=== PATIENT | female | born 1950 | race Caucasian/White ===

== ENCOUNTER 2020-05-29 11:08 | Inpatient (IN) | payer MEDICARE, OTHER, SELFPAY ==
[2020-05-29] VITALS (38 sets, daily range): BP systolic 127–161; BP diastolic 79–106; PULSE 71–97; RESP 18–37; TEMP 36.8–37.1; O2SAT 89–96; BMI 30.2
--- NOTE | 2020-05-29 11:28 | XR_ITS ---
WS: [id number] Exam: XR chest 1V portable [id number] Date/Time of Exam: 05/29/2020 11:28 AM Reason For Exam: cough Comparison 02/18/2019 There are patchy opacities identified throughout the right lung as well as the mid left lung and left base. Findings suggest pneumonia. Heart size is normal. Large hiatal hernia. No pleural effusions. T he lungs are fully inflated. Normal mediastinal structures and bony elements. XR/XR chest 1V portable [id number] IMPRESSION: 1. Bilateral pulmonary infiltrates consistent with pneumonia. 2. Large hiatal hernia.
--- NOTE | 2020-05-29 11:29 | W.ED.COVID ---
HPI - COVID General: Chief Complaint: COVID symptoms Stated Complaint: COVID SYMPTOMS Time Seen by Provider: 05/29/20 11:21 Source: patient Mode of arrival: ambulatory Limitations: no limitations Triage information: Has fever, cough or shortness of breath. Exposure to COVID + person last 14 days History of Present Illness: HPI Narrative: Shanna is a 69-year-old female who states she has been having shortness of breath along with increased wheezing over last 2 days. Patient diagnosed with Covid 1 week ago. She denies any fevers. She states she has been having some increased shortness of breath. Patient's pulse ox here is 92% on room air. She does not appear to be any distress at this time. She denies any chest pain. COVID 19 common symptoms: positive non-productive cough and dyspnea; negative fever(s), chills, body aches, headache(s), throat pain, nausea, vomiting or diarrhea COVID 19 other sytmptoms: negative chest pain COVID Results: No Data to Display Review of Systems Const: Denies: fever(s), chills, body aches or change in appetite Eyes: Denies: blurry vision or eye discomfort ENMT: Denies: throat pain or dental pain Card: Denies: chest pain Resp: Reports: dyspnea and non-productive cough GI: Denies: abdominal pain, nausea, vomiting or diarrhea : Denies: dysuria Musc: Denies: neck pain or back pain Skin/Breast: Denies: rash Neuro: Denies: headache(s) Psych: Denies: depression Miguel/Lymph: Denies: easy bruising All/Imm: Denies: urticaria Physical Exam Const: COMMON NORMALS: no acute distress, patient oriented x3 and healthy appearing HENMT: COMMON NORMALS: normocephalic and atraumatic HEAD & SCALP: normocephalic and atraumatic Eye: COMMON NORMALS: Equal, round and reactive pupils present and EOMs intact bilaterally PUPIL: Yes Equal, round and reactive pupils present Neck/C-Spine: COMMON NORMALS: full ROM and supple Chest: COMMONS NORMALS: normal inspection of the chest and normal palpation of entire chest wall Resp: COMMON NORMALS: normal respiratory effort, No retractions and No use of accessory muscles AUSCULTATION: rales and wheezes Cardio: COMMON NORMALS: regular rate, regular rhythm and No murmurs present (Cardio) RATE: regular rate RHYTHM: regular rhythm GI: COMMON NORMALS: Normal to inspection, nondistended, normoactive bowel sounds present, Soft to palpation, non-tender and no masses PALPATION: Yes Soft to palpation Extremity: COMMON NORMALS: normal to inspection and full ROM Neuro: COMMON NORMALS: patient oriented x3, moves all extremities and no focal motor deficits Psych: COMMON NORMALS: mental status grossly normal, Normal thought process present and cooperative THOUGHT PROCESS: Normal thought process present Skin: COMMON NORMALS: no rashes or lesions noted and no wounds GENERAL SKIN EXAM: no rashes or lesions noted Course Vital Signs: Vital signs: Vital Signs Temperature 98.5 F 05/29/20 11:21 Pulse Rate 85 05/29/20 11:21 Respiratory Rate 32 H 05/29/20 11:21 Blood Pressure 156/92 05/29/20 11:21 Pulse Oximetry 93 05/29/20 11:21 MDM - COVID MDM Narrative Medical decision making narrative: Patient presents here with shortness of breath he does have Covid. Patient's x-ray shows bilateral infiltrates consistent with a Covid pneumonia. Patient given a breathing treatment and Decadron here. I spoke to Dr. Farrukh gupta and will admit to the viral ICU at this time. Patient has been stable while in the ER. Lab Data Result diagrams: 05/29/20 12:35 05/29/20 13:16 Labs: Lab Results 05/29/20 05/29/20 05/29/20 Range/Units 11:44 12:35 12:35 WBC Cancelled Corrected WBC Cancelled RBC Cancelled Hgb Cancelled Hct Cancelled MCV Cancelled MCH Cancelled MCHC Cancelled RDW Cancelled Plt Count Cancelled MPV Cancelled Gran % Cancelled Neut % (Auto) Cancelled Lymph % (Auto) Cancelled Tama % (Auto) Cancelled Eos % (Auto) Cancelled Baso % (Auto) Cancelled Neut # (Auto) Cancelled Lymph # (Auto) Cancelled Tama # (Auto) Cancelled Eos # (Auto) Cancelled Baso # (Auto) Cancelled Absolute Gran (auto) Cancelled Nucleated RBC % (auto) Cancelled Nucleated RBCs # Cancelled Fibrinogen (174-498) mg/dL Specimen Type Sample Site ABG pH (7.35-7.45) ABG pCO2 (35-45) mmHg ABG pO2 (80.0-100.0) mmHg ABG HCO3 (22-26) mmol/L ABG Base Excess (-2.0-2.0) mmol/L Saurabh Test Hematocrit (37-47) % O2 Delivery Device Doctor Of Nurse Anesthesia Practice ID Sodium Cancelled Potassium Cancelled Chloride Cancelled Carbon Dioxide Cancelled Anion Gap Cancelled BUN Cancelled Creatinine Cancelled GFR Calculation Cancelled Glucose Cancelled Calculated Osmolality Cancelled Lactic Acid Cancelled Calcium Cancelled Total Bilirubin Cancelled AST Cancelled ALT Cancelled Alkaline Phosphatase Cancelled C-Reactive Protein Cancelled Total Protein Cancelled Albumin Cancelled Globulin Cancelled 05/29/20 05/29/20 05/29/20 Range/Units 12:35 12:52 13:16 WBC 7.3 Corrected WBC RBC 4.33 Hgb 12.5 Hct 39.5 MCV 91.2 MCH 28.9 MCHC 31.6 RDW 14.4 Plt Count 304 MPV 10.7 H Gran % Neut % (Auto) 66.5 Lymph % (Auto) 22.6 Tama % (Auto) 8.3 Eos % (Auto) 2.1 Baso % (Auto) 0.1 Neut # (Auto) 4.86 Lymph # (Auto) 1.7 Tama # (Auto) 0.6 Eos # (Auto) 0.2 Baso # (Auto) 0.0 Absolute Gran (auto) Nucleated RBC % (auto) 0 Nucleated RBCs # 0.0 Fibrinogen 512 H (174-498) mg/dL Specimen Type Arterial Sample Site Brachial, right ABG pH 7.47 H (7.35-7.45) ABG pCO2 33.4 L (35-45) mmHg ABG pO2 59.8 L (80.0-100.0) mmHg ABG HCO3 24.4 (22-26) mmol/L ABG Base Excess 1.1 (-2.0-2.0) mmol/L Saurabh Test N/a Hematocrit 36.5 L (37-47) % O2 Delivery Device Room air Doctor Of Nurse Anesthesia Practice ID Gd Sodium Potassium Chloride Carbon Dioxide Anion Gap BUN Creatinine GFR Calculation Glucose Calculated Osmolality Lactic Acid Calcium Total Bilirubin AST ALT Alkaline Phosphatase C-Reactive Protein Total Protein Albumin Globulin 05/29/20 Range/Units 13:16 WBC Corrected WBC RBC Hgb Hct MCV MCH MCHC RDW Plt Count MPV Gran % Neut % (Auto) Lymph % (Auto) Tama % (Auto) Eos % (Auto) Baso % (Auto) Neut # (Auto) Lymph # (Auto) Tama # (Auto) Eos # (Auto) Baso # (Auto) Absolute Gran (auto) Nucleated RBC % (auto) Nucleated RBCs # Fibrinogen (174-498) mg/dL Specimen Type Sample Site ABG pH (7.35-7.45) ABG pCO2 (35-45) mmHg ABG pO2 (80.0-100.0) mmHg ABG HCO3 (22-26) mmol/L ABG Base Excess (-2.0-2.0) mmol/L Saurabh Test Hematocrit (37-47) % O2 Delivery Device Doctor Of Nurse Anesthesia Practice ID Sodium 141 Potassium 3.9 Chloride 105 Carbon Dioxide 27 Anion Gap 12.9 BUN 16 Creatinine 0.7 GFR Calculation 82.7 L Glucose 95 Calculated Osmolality 293 Lactic Acid Calcium 9.1 Total Bilirubin 0.3 AST 25 ALT 14 Alkaline Phosphatase 75 C-Reactive Protein 93.9 H Total Protein 7.3 Albumin 3.6 Globulin 3.7 COVID Results: No Data to Display Imaging Data CXR: Attestation: I personally reviewed and interpreted this imaging study as follows: Radiologist's impression: [address] [address] XRay Report Signed Patient: Shanna Chinchilla Unit #: [id number] : 1950 Age/Sex: 69 / F ADM Date: 05/29/20 Loc: ER Room/Bed: Attending Dr: Ordering Provider/Ordering MD: Edvin Hendrickson MD Date of Service: 05/29/20 Procedure(s): XR chest 1V portable [id number] Accession Number(s): [id number] Report Number: [id number] WS: [id number] Exam: XR chest 1V portable [id number] Date/Time of Exam: 05/29/2020 11:28 AM Reason For Exam: cough Comparison 02/18/2019 There are patchy opacities identified throughout the right lung as well as the mid left lung and left base. Findings suggest pneumonia. Heart size is normal. Large hiatal hernia. No pleural effusions. The lungs are fully inflated. Normal mediastinal structures and bony elements. XR/XR chest 1V portable [id number] IMPRESSION: 1. Bilateral pulmonary infiltrates consistent with pneumonia. 2. Large hiatal hernia. Discharge Plan Discharge Patient Disposition: Admitted As Inpatient Clinical Impression: Pneumonia due to 2019-nCoV Condition: Stable Coding Level of Care Code ED Public Information Specialist for Joelle Fwd Exam Comprehensive
[2020-05-29] MEDS: sodium chloride 0.9% 1,000 ML 999 ML IV (12:17)
[2020-05-29] MEDS: dexamethasone 4 mg/mL INJ 10 MG IVP (12:18)
[2020-05-29 12:43] LABS: Basophils % 0.1 %; Eosinophils # 0.2 10^3/uL (0.0-0.8); Eosinophils % 2.1 %; Hematocrit 39.5 % (37.0-47.0); Hemoglobin 12.5 g/dL (11.5-15.3); Lymphocytes # 1.7 10^3/uL (0.8-4.8); Lymphocytes % 22.6 %; Mean Corpuscular HGB Conc 31.6 g/dL (30.0-36.0); Mean Corpuscular Hemoglobin 28.9 pg (28.0-34.0); Mean Corpuscular Volume 91.2 fL (81-99); Mean Platelet Volume 10.7 fL (7.4-10.4); Monocytes # 0.6 10^3/uL (0.2-0.9); Monocytes % 8.3 %; Neutrophils # 4.86 10^3/uL (1.8-7.7); Neutrophils % 66.5 %; Nucleated Red Blood Cells % 0 %; Platelet Count 304 10^3/cmm (130-400); Red Blood Count 4.33 10^6/uL (4.1-5.3); Red Cell Distribution Width 14.4 % (12.1-15.1); White Blood Count 7.3 10^3/uL (4.0-10.0)
[2020-05-29 13:07] LABS: ABG PCO2 33.4 mmHg (35-45); ABG PH Result 7.47 (7.35-7.45); Arterial Blood Gas Hematocrit 36.5 % (37-47); Base Excess ABG 1.1 mmol/L (-2.0-2.0); Blood Gas Operator Identificat GD; Blood Gas Sample Site Brachial, right; Blood Gas Sample Type Arterial; HCO3 ABG 24.4 mmol/L (22-26); Oxygen Device ROOM AIR; PO2 ABG 59.8 mmHg (80.0-100.0)
[2020-05-29 13:53] LABS: Alanine Aminotransferase 14 U/L (0-33); Albumin Level 3.6 g/dL (3.5-5.2); Alkaline Phosphatase 75 IU/L (35-105); Anion Gap 12.9 (5-19); Aspartate Amino Transferase 25 U/L (0-32); Blood Urea Nitrogen 16 mg/dL (8-23); Calcium 9.1 mg/dL (8.5-10.5); Carbon Dioxide 27 mmol/L (22-29); Chloride 105 mmol/L (98-107); Globulin 3.7 g/dL (1.3-4.6); Glomerular Filtration Rate 82.7 mL/min (90-130); Glucose 95 mg/dL (65-115); Osmolality Calculated 293 mOsm/kg (285-295); Potassium 3.9 mmol/L (3.5-5.1); Sodium 141 mmol/L (136-145); Total Bilirubin 0.3 mg/dL (0.15-1.2); Total Protein 7.3 g/dL (6.6-8.7)
[2020-05-29 14:06] LABS: C Reactive Protein 93.9 mg/L (0.0-4.9)
[2020-05-29 14:14] LABS: Fibrinogen 512 mg/dL (174-498)
[2020-05-29 15:42] LABS: Lactic Sepsis W/Reflex 1.2 mmol/L (0.5-2.2)
--- NOTE | 2020-05-29 16:41 | PC.NURSE ---
Jayesh Ferguson, someone known to the patient, requested the patient's keys so she can take belongings to the patient's . This is okay with the Patient. [employer] were given to Diya form the ER to give to jayesh
--- NOTE | 2020-05-29 16:45 | PC.NURSE ---
patient arrived on unit from ER
--- NOTE | 2020-05-29 17:31 | PM.HP ---
Providers/Chief Complaint Admitting Physician: Adriana Grover MD Primary Care Provider: Dr. Fitzpatrick Chief Complaint: COVID SYMPTOMS History of Present Illness Shanna Chinchilla is a 69 year old female with PMHx noted below, presents to the ER following on phone call from the health department stating that her COVID-19 results are positive. Patient was tested at PCP office on 05/19 with results available today. She states that she was likely exposed at her workplace, she works as a cook at a local high school. While waiting for her results she had progressive shortness of breath, dry cough, malaise, myalgia, decreased appetite, loss of sense of smell, diminished sense of taste, some post-tussive vomiting and multiple episodes of loose stool. She is typically quite active, productive and is not oxygen dependent at baseline. Her at home has had similar symptoms and actually accompanied her to the ER today. She is subjectively short of breath to do maintain her saturation in the low 90s on room air. Her work-up so far indicates a normal CBC, normal chemistry, elevated fibrinogen, elevated CRP, hypoxia on ABG with PO2 of 59.8. Chest x-ray is consistent with bilateral pneumonia likely secondary to COVID-19 infection. She has received a dose of dexamethasone, 1 L normal saline and inhaler treatment. She is encountered on her arrival to the viral ICU and remains on room air. She is somewhat ill-appearing on my assessment. Will need further inflammatory markers checked but for now we will continue supportive care including continued IV steroids. Would hold off on remdesivir at this time as she is maintaining her oxygenation and her labs available, is likely mild to moderate in terms of severity. Review of Systems Const: Reports: change in appetite (decreased appetite) and fatigue; Denies: fever(s) or chills Eyes: Denies: change in vision ENMT: Reports: dry mouth Card: Denies: chest pain, swelling of feet/ankles or lightheadedness Resp: Reports: productive cough (green sputum); Denies: dyspnea GI: Denies: abdominal pain, nausea, vomiting, hematemesis or hematochezia : Reports: urinary frequency; Denies: difficulty voiding or dysuria Musc: Denies: back pain Skin/Breast: Denies: rash Neuro: Reports: weakness in extremities; Denies: numbness in extremities Psych: Denies: anxiety Medications/Allergies Home Medications Medication Instructions Recorded Confirmed Last Taken Type acetaminophen [Tylenol Extra 500 - 1,000 mg PO PRN 05/29/20 05/29/20 Unknown History Strength] amlodipine 5 mg PO DAILY 05/29/20 05/29/20 05/29/20 History famotidine 20 mg PO BEDTIME 05/29/20 05/29/20 Unknown History multivit with min-folic acid 400 mcg PO DAILY 05/29/20 05/29/20 Unknown History [Adult Multivitamin Gummies] naproxen sodium [Aleve] 440 mg PO PRN 05/29/20 05/29/20 Unknown History omeprazole 40 mg PO DAILY 05/29/20 05/29/20 05/29/20 History sertraline 50 mg PO BEDTIME 05/29/20 05/29/20 Unknown History sumatriptan succinate 50 mg PO PRN 05/29/20 05/29/20 Unknown History tramadol 25 - 50 mg PO Q4H PRN 05/29/20 05/29/20 Unknown History Allergies Allergy/AdvReac Type Severity Reaction Status Date / Time acetaminophen [From Percocet] Allergy Unknown Verified 05/29/20 14:10 codeine Allergy Unknown Verified 05/29/20 14:10 oxycodone Allergy Unknown Verified 05/29/20 14:10 topiramate [From Topamax] Allergy Unknown Verified 05/29/20 14:10 PFSH Acute PFSH: Medical History Cervical cancer GERD (gastroesophageal reflux disease) HTN (hypertension) Migraine headache Osteoarthritis Surgical History History of hysterectomy for cancer History of knee replacement -bilateral S/P cholecystectomy Family History Grandmother Cancer -breast cancer Social History (Updated 05/29/20 @ 17:41 by Adriana Grover MD) Smoking and tobacco status: never smoked Alcohol intake: never Substance/Drug Use: never Household members: spouse Marital status: Current occupational status: employed Current occupation: cook at [employer] Vitals/I&O/Wt Last Vital Signs Temp 98.5 F 05/29/20 15:23 Pulse 82 05/29/20 16:46 Resp 20 H 05/29/20 16:46 BP 140/91 05/29/20 16:46 Pulse Ox 91 05/29/20 16:46 05/29/20 05/29/20 05/29/20 06:59 14:59 22:59 Intake Total 1000 / 1000 Balance 1000 / 1000 Weight last 48 hrs Weight 72.575 kg Physical Exam Const: COMMON NORMALS: no acute distress, patient oriented x3 and alert GENERAL APPEARANCE: cooperative and comfortable ORIENTATION/CONSCIOUSNESS: Yes awake HENMT: COMMON NORMALS: normocephalic, atraumatic, hearing grossly normal bilaterally and moist oral mucous membranes HEAD & SCALP: normocephalic and atraumatic Eye: COMMON NORMALS: Equal, round and reactive pupils present, EOMs intact bilaterally and conjunctivae normal CONJUNCTIVA: Yes conjunctivae normal PUPIL: Yes Equal, round and reactive pupils present Neck/C-Spine: COMMON NORMALS: full ROM GENERAL: Yes normal visual inspection and Yes trachea midline Resp: COMMON NORMALS: normal respiratory effort, No retractions and No use of accessory muscles EFFORT & INSPECTION: Yes able to speak in complete sentences, Yes symmetric chest movement, Yes tachypneic and Yes Actively coughing dry OTHER: -diminished breath sounds bilaterally, upper airway breath sounds -on RA Cardio: COMMON NORMALS: regular rate, regular rhythm, S1 normal heart sound present, S2 normal heart sound present and No murmurs present (Cardio) RATE: regular rate RHYTHM: regular rhythm HEART SOUNDS: S1 normal heart sound present and S2 normal heart sound present GI: COMMON NORMALS: Normal to inspection, nondistended, normoactive bowel sounds present, Soft to palpation and non-tender PALPATION: Yes Soft to palpation Extremity: COMMON NORMALS: normal to inspection, full ROM and no clubbing, cyanosis or edema; negative for no pedal edema Neuro: COMMON NORMALS: patient oriented x3, moves all extremities, no focal motor deficits, no sensory deficits noted and gait normal Psych: COMMON NORMALS: mental status grossly normal, Normal thought process present, cooperative, normal affect and speech normal SPEECH: Yes normal speech THOUGHT PROCESS: Normal thought process present Skin: COMMON NORMALS: no rashes or lesions noted, no jaundice, no petechiae and no mottling GENERAL SKIN EXAM: no rashes or lesions noted Data : 05/29/20 12:35 05/29/20 13:16 A&P Assessment and plan (1) Pneumonia due to 2019-nCoV: -initially tested for COVID-19 on 05/19; results available today; workplace exposure -not oxygen dependent at baseline; currently saturating in the low 90s on RA -received one dose of dexamethasone; continue IV steroids -will hold off on remdesevir unless respiratory status decompensates or increase in disease severity; ABG with noted hypoxia -telemetry monitoring -monitor vital signs -monitor respiratory status -supplemental oxygen as needed; supportive care including zinc, vitamin C, breathing treatments as needed, antitussives, incentive spirometry, pulmonary toilet -order influenza screen, bacterial antigens, Legionella, blood and sputum cx -trend inflammatory markers -noted evidence of bilateral pneumonia on CXR -add empiric antibiotic coverage as unable to exclude bacterial superinfection Status: Acute (2) HTN (hypertension): -monitor vital signs -resume antihypertensives Status: Chronic Qualifiers: Hypertension type: essential hypertension Qualified Code(s): I10 - Essential (primary) hypertension (3) GERD (gastroesophageal reflux disease): -resume pepcid -large hiatal hernia noted on CXR Status: Chronic Qualifiers: Esophagitis presence: esophagitis presence not specified Qualified Code(s): K21.9 - Gastro-esophageal reflux disease without esophagitis Additional A&P Information -hx of OA; pain control as needed -viral diarrhea; likely secondary to COVID-19 infection; gentle IVF hydration given limited oral intake -low salt diet as tolerated -GI ppx with famotidine -DVT ppx with Lovenox; will check D-dimer to determine if need for escalation as well as if clinical decompensation -Dispo: home -Code status: FULL code -admit to [facility] Medical Necessity Statement*: Shanna Chinchilla's hospital stay will require greater than 2 midnights for management of COVID-19 pneumonia requiring close monitoring of respiratory status due to concern for further deterioration. Time Spent in Patient Care: Greater than 35 minutes (>than 50% of time spent in counselling and/or direct pt care on unit). Coding Level of Care Code Acute Uniform Attendant for Chg Fwd Diagnoses Pneumonia due to 2019-nCoV U07.1; J12.89 HTN (hypertension) I10 Hypertension type: essential hypertension GERD (gastroesophageal reflux disease) K21.9 Esophagitis presence: esophagitis presence not specified
--- NOTE | 2020-05-29 18:16 | PC.NURSE ---
Patients purse given to Michelle from the ER to be given the patient's .
[2020-05-29] MEDS: famotidine 20 mg Tablet PO (18:37)
[2020-05-29] MEDS: sodium chloride 0.9% 1,000 ML 75 ML IV (18:37)
[2020-05-29] MEDS: enoxaparin 40 mg/0.4 mL Syringe SUBCUT (18:37)
[2020-05-29 19:11] LABS: Influenza A by IFA Negative (Negative)
[2020-05-29 19:12] LABS: Influenza B by IFA Negative (Negative)
[2020-05-29] MEDS: sertraline 50 mg Tablet PO (21:25)
[2020-05-30] VITALS (39 sets, daily range): BP systolic 128–169; BP diastolic 74–112; PULSE 62–100; RESP 15–30; TEMP 36.4–37.2; O2SAT 88–99
--- NOTE | 2020-05-30 03:50 | PC.NURSE ---
pts bed is unable to have weights taken on.
[2020-05-30] MEDS: sodium chloride 0.9% 1,000 ML 75 ML IV (04:47)
[2020-05-30] MEDS: benzonatate 100 mg Capsule PO (04:48)
[2020-05-30 05:44] LABS: Basophils % 0.1 %; Hematocrit 40.9 % (37.0-47.0); Hemoglobin 12.5 g/dL (11.5-15.3); Lymphocytes # 1.8 10^3/uL (0.8-4.8); Lymphocytes % 25.8 %; Mean Corpuscular HGB Conc 30.6 g/dL (30.0-36.0); Mean Corpuscular Hemoglobin 28.5 pg (28.0-34.0); Mean Corpuscular Volume 93.2 fL (81-99); Mean Platelet Volume 12.1 fL (7.4-10.4); Monocytes # 0.2 10^3/uL (0.2-0.9); Monocytes % 3.2 %; Neutrophils # 5.01 10^3/uL (1.8-7.7); Neutrophils % 70.3 %; Nucleated Red Blood Cells % 0 %; Platelet Count 249 10^3/cmm (130-400); Red Blood Count 4.39 10^6/uL (4.1-5.3); Red Cell Distribution Width 14.4 % (12.1-15.1); White Blood Count 7.1 10^3/uL (4.0-10.0)
[2020-05-30 06:05] LABS: Alanine Aminotransferase 14 U/L (0-33); Albumin Level 3.6 g/dL (3.5-5.2); Alkaline Phosphatase 72 IU/L (35-105); Anion Gap 17.5 (5-19); Aspartate Amino Transferase 22 U/L (0-32); Blood Urea Nitrogen 14 mg/dL (8-23); C Reactive Protein 65.7 mg/L (0.0-4.9); Calcium 8.5 mg/dL (8.5-10.5); Carbon Dioxide 21 mmol/L (22-29); Chloride 105 mmol/L (98-107); Creatine Phosphokinase 42 U/L (26-192); Globulin 3.6 g/dL (1.3-4.6); Glomerular Filtration Rate 98.8 mL/min (90-130); Glucose 151 mg/dL (65-115); Osmolality Calculated 293 mOsm/kg (285-295); Potassium 3.5 mmol/L (3.5-5.1); Sodium 140 mmol/L (136-145); Total Bilirubin 0.2 mg/dL (0.15-1.2); Total Protein 7.2 g/dL (6.6-8.7)
[2020-05-30 06:29] LABS: NT Pro B Type Natriuretic Pept 859 pg/mL (0-125); Procalcitonin 0.08 ng/mL (0-0.5)
[2020-05-30 06:41] LABS: Ferritin 214 ng/mL (15-150); Lactate Dehydrogenase 283 U/L (135-214)
[2020-05-30 06:47] LABS: Fibrinogen 494 mg/dL (174-498)
[2020-05-30 07:07] LABS: D Dimer >= 20.00 ug/mIFEU (0-0.59)
[2020-05-30] MEDS: zinc gluconate 50 mg Tablet PO (09:46)
[2020-05-30] MEDS: azithromycin 250 mg Tablet 500 MG PO (09:47)
[2020-05-30] MEDS: famotidine 20 mg Tablet PO ×2 (09:47→17:43)
[2020-05-30] MEDS: amlodipine 5 mg Tablet PO (09:47)
[2020-05-30] MEDS: ascorbic acid 500 mg Tablet PO (09:47)
[2020-05-30] MEDS: dexamethasone 4 mg/mL INJ 6 MG IVP (11:41)
--- NOTE | 2020-05-30 14:00 | PC.NURSE ---
Ambulated Patient in [place]. Approximately 300 feet on room air. Patient had an increased work of breathing, but was not in any distress, was able to hold a conversation, and maintained O2 saturation of 90%.
--- NOTE | 2020-05-30 14:33 | PC.NURSE ---
weighed patient at standing scale while ambulating
--- NOTE | 2020-05-30 14:39 | USCV_ITS ---
Amor Shanna Age: 69 Gender: F : 1950 Exam Date: 05/30/2020 17:01 Ordering Phys: Adriana Grover MD Technologist: Betsy Saeed [place] [facility] [place]: significantly elevated d dimer PROCEDURES: Venous duplex imaging was performed in bilateral lower extremities. The following venous structures were evaluated: common femoral vein, profunda vein, proximal portion of the greater saphenous vein, superficial femoral vein, and the popliteal vein. In addition, the posterior tibial and peroneal trunk were evaluated. Serial compression, augmentation maneuvers, and spectral Doppler flow evaluation were performed. FINDINGS: There is a partial thrombus noted in the peroneal vein located in the right lower extremity. All other vessels examined appear free of thrombus at this time. No left DVT. CONCLUSIONS There is evidence of acute right lower extremity deep venous thrombosis , thrombus in the right peroneal vein. Dr. Darleen Gee DO (Electronically Signed) Final Date: 31 May 2020 08:13 S
--- NOTE | 2020-05-30 14:39 | CTR_ITS ---
PROCEDURE INFORMATION: Exam: CT Angiography Chest With Contrast Exam date and time: 05/30/2020 3:48 PM Age: 69 years old Clinical indication: Abnormal findings; Abnormal diagnostic tests; Elevated d-dimer; Additional info: Significant d dimer elevation, covid+ TECHNIQUE: Imaging protocol: Computed tomographic angiography of the chest with intravenous contrast. 3D rendering (Not supervised by radiologist): MIP and/or 3D reconstructed images were created by the technologist. Radiation optimization: All CT scans at this facility use at least one of these dose optimization techniques: automated exposure control; mA and/or kV adjustment per patient size (includes targeted exams where dose is matched to clinical indication); or iterative reconstruction. Contrast material: OMNI 350; Contrast volume: 75 ml; Contrast route: INTRAVENOUS (IV); COMPARISON: CR XR chest 1V portable [id number] 05/29/2020 11:48 AM RADIATION DOSE METRICS: Total DLP (mGy-cm): 578.47 FINDINGS: Pulmonary arteries: No pulmonary embolus or aortic dissection. Aorta: Unremarkable. No aortic aneurysm. No aortic dissection. Lungs: Bilateral geographic ground-glass opacities with crazy paving consistent with moderate to severe bilateral Covid-19 pneumonia versus other viral pneumonia. Pleural space: Unremarkable. No pneumothorax. No pleural effusion. Heart: Mild pericardial fluid and/or thickening. Mediastinal space: Stable large intrathoracic hiatal hernia. Lymph nodes: Calcified right hilar nodes and/or mediastinal nodes and/or lung granulomas consistent with old granulomatous disease. Gallbladder and bile ducts: Surgical clips in the gallbladder fossa consistent with cholecystectomy. Kidneys and ureters: Left renal simple cyst measuring >1.0 cm. Bones/joints: Unremarkable. No acute fracture. Soft tissues: Unremarkable. CT/CT angio chest [facility] [id number] IMPRESSION: 1. Bilateral geographic ground-glass opacities with crazy paving consistent with moderate to severe bilateral Covid-19 pneumonia versus other viral pneumonia. 2. No pulmonary embolus or aortic dissection. Radiation Dose CTDIVOL = (mGy): DLP = 578.47 (mGy-cm)
--- NOTE | 2020-05-30 14:41 | P.PN_ITS ---
Subjective Subjective: Interval history: Remains on RA, noted elevated inflammatory markers particularly D-dimer so need to r/o DVT, PE, will escalate anticoagulation. Has been ambulating in hallway, in good spirits and reports feeling better today. Discussed elevated D-dimer and concer for possible VTE which she states she has had in the past, PE about 3 yrs ago and RLE DVT; treated with course of Eliquis which she tolerated well. Appetite and oral intake have improved. Medications: Reviewed: Yes Medication Review Details: Active Medications Generic Name Dose Route Start Last Admin Trade Name Freq PRN Reason Stop Dose Admin Acetaminophen 650 mg 05/29/20 17:46 Tylenol PO Q6H PRN MILD PAIN OR INCR EASE TEMP Albuterol Sulfate 2 puff 05/29/20 17:41 Ventolin INHALATION Q4H.RESPIRATORY P RN SHORTNESS OF AZUCENA TH Amlodipine Besylat e 5 mg 05/30/20 09:00 05/30/20 09:47 Norvasc PO 5 mg DAILY YUMIKO Administration Ascorbic Acid 500 mg 05/30/20 09:00 05/30/20 09:47 Vitamin C PO 500 mg DAILY YUMIKO Administration Azithromycin 500 mg 05/30/20 09:00 05/30/20 09:47 Zithromax PO 500 mg DAILY YUMIKO Administration Protocol Benzonatate 100 mg 05/29/20 17:53 05/30/20 04:48 Tessalon Pearls PO 100 mg TID PRN Administration COUGH Dexamethasone 6 mg 05/30/20 11:00 05/30/20 11:41 Decadron IVP 6 mg Q24H YUMIKO Administration Enoxaparin Sodium 80 mg 05/30/20 14:45 Lovenox SUBCUT Q12H YUMIKO Famotidine 20 mg 05/29/20 18:00 05/30/20 09:47 Pepcid Tab PO 20 mg BID YUMIKO Administration Ondansetron HCl 4 mg 05/29/20 17:44 Zofran IVP Q6H PRN NAUSEA AND VOMITI NG Sertraline HCl 50 mg 05/29/20 21:00 05/29/20 21:25 Zoloft PO 50 mg BEDTIME YUMIKO Administration Zinc Gluconate 50 mg 05/30/20 09:00 05/30/20 09:46 Zinc Gluconate PO 50 mg DAILY YUMIKO Administration acetaminophen [From Percocet] Allergy (Verified 05/29/20 14:10) Unknown codeine Allergy (Verified 05/29/20 14:10) Unknown oxycodone Allergy (Verified 05/29/20 14:10) Unknown topiramate [From Topamax] Allergy (Verified 05/29/20 14:10) Unknown Vitals/I&O/Wt Last Vital Signs Temp 98.1 F 05/30/20 12:00 Pulse 84 05/30/20 12:55 Resp 18 05/30/20 12:55 BP 169/93 05/30/20 12:00 Pulse Ox 93 05/30/20 12:55 05/29/20 05/30/20 05/30/20 22:59 06:59 14:59 Intake Total 1000 / 1000 962.5 / 1962.5 1142.5 / 1142.5 Output Total 500 / 500 600 / 1100 600 / 600 Balance 500 / 500 362.5 / 862.5 542.5 / 542.5 Weight last 48 hrs Weight 78.471 kg Weight 72.575 kg Physical Exam Const: COMMON NORMALS: no acute distress, patient oriented x3 and alert GENERAL APPEARANCE: cooperative and comfortable ORIENTATION/CONSCIOUSNESS: Yes awake HENMT: COMMON NORMALS: normocephalic, atraumatic, hearing grossly normal bilaterally and moist oral mucous membranes HEAD & SCALP: normocephalic and atraumatic Eye: COMMON NORMALS: Equal, round and reactive pupils present, EOMs intact bilaterally and conjunctivae normal CONJUNCTIVA: Yes conjunctivae normal PUPIL: Yes Equal, round and reactive pupils present Neck/C-Spine: COMMON NORMALS: full ROM GENERAL: Yes normal visual inspection and Yes trachea midline Resp: COMMON NORMALS: normal respiratory effort, No retractions and No use of accessory muscles EFFORT & INSPECTION: Yes able to speak in complete sentences, Yes symmetric chest movement, Yes tachypneic and Yes Actively coughing dry OTHER: -diminished breath sounds bilaterally, upper airway breath sounds -on RA Cardio: COMMON NORMALS: regular rate, regular rhythm, S1 normal heart sound present, S2 normal heart sound present and No murmurs present (Cardio) RATE: regular rate RHYTHM: regular rhythm HEART SOUNDS: S1 normal heart sound present and S2 normal heart sound present GI: COMMON NORMALS: Normal to inspection, nondistended, normoactive bowel sounds present, Soft to palpation and non-tender PALPATION: Yes Soft to palpation Extremity: COMMON NORMALS: normal to inspection, full ROM and no clubbing, cyanosis or edema; negative for no pedal edema Neuro: COMMON NORMALS: patient oriented x3, moves all extremities, no focal motor deficits, no sensory deficits noted and gait normal SENSORIUM/ORIENTATION: Yes alert Psych: COMMON NORMALS: mental status grossly normal, Normal thought process present, cooperative, normal affect and speech normal SPEECH: Yes normal speech THOUGHT PROCESS: Normal thought process present Skin: COMMON NORMALS: no rashes or lesions noted, no jaundice, no petechiae and no mottling GENERAL SKIN EXAM: no rashes or lesions noted Data : 05/30/20 03:23 05/30/20 03:23 Micro: Microbiology 05/29/20 18:23 MRSA Culture - Final Nose 05/29/20 20:40 Legionella Urinary Antigen - Final Urine,Voided Bacterial Antigens - Final 05/29/20 20:20 Blood Culture - Preliminary Blood SPECIMEN COLLECTED 05/29/20 20:34 Blood Culture - Preliminary Blood SPECIMEN COLLECTED A&P Assessment and plan (1) Pneumonia due to 2019-nCoV: -initially tested for COVID-19 on 05/19; results available today; workplace exposure -not oxygen dependent at baseline; currently saturating in the low 90s on RA -continue dexamethasone -ABG with noted hypoxia -telemetry monitoring -continue to monitor vital signs; stable currently -continue to monitor respiratory status -supplemental oxygen as needed; supportive care including zinc, vitamin C, breathing treatments as needed, antitussives, incentive spirometry, pulmonary toilet -negative influenza screen, bacterial antigens, Legionella -f/u blood and sputum cx -continue to trend inflammatory markers -noted evidence of bilateral pneumonia on CXR; noted to have moderate to severe bilateral groundglass opacities so will start on remdesivir -continue empiric antibiotic coverage as unable to exclude bacterial superinfection -due to significant D-dimer elevation (>20), need to r/o DVT, PE; escalate anticoagulation Status: Acute (2) HTN (hypertension): -continue to monitor vital signs -continue antihypertensives Status: Chronic Qualifiers: Hypertension type: essential hypertension Qualified Code(s): I10 - Essential (primary) hypertension (3) GERD (gastroesophageal reflux disease): -continue pepcid -large hiatal hernia noted on CXR Status: Chronic Qualifiers: Esophagitis presence: esophagitis presence not specified Qualified Code(s): K21.9 - Gastro-esophageal reflux disease without esophagitis Additional A&P Information -hx of OA; pain control as needed -viral diarrhea; likely secondary to COVID-19 infection; d/c IVF, encourage oral hydration -prior hx of PE, RLE DVT; treated with course of Eliquis -low salt diet as tolerated -GI ppx with famotidine -DVT ppx with Lovenox -Dispo: home -Code status: FULL code Attestations Medical Necessity Statement*: Patient requires hospitalization for continued management of COVID-19 pneumonia with noted elevated D-dimer and need to evaluate for possible VTE. Time Spent in Patient Care: 16 - 35 minutes (>than 50% of time spent in counselling and/or direct pt care on unit) . Coding Level of Care Code Acute [employer] for [employer] Fwd Exam Comprehensive Diagnoses Pneumonia due to 2019-nCoV U07.1; J12.89 HTN (hypertension) I10 Hypertension type: essential hypertension GERD (gastroesophageal reflux disease) K21.9 Esophagitis presence: esophagitis presence not specified
[2020-05-30] MEDS: enoxaparin 100 mg/mL Syringe 80 MG SUBCUT (15:04)
[2020-05-30] MEDS: iohexol 350 mg/mL 100 mL Btl IV (16:00)
--- NOTE | 2020-05-30 18:33 | PC.NURSE ---
Patient taken to off unit via wheelchair For CT scan. Transport uneventful. Changed patient's linens and gown upon return
--- NOTE | 2020-05-30 18:58 | PC.NURSE ---
Patient has given permission to share information with Claudia (daughter), Lissy ryan, molly mcclellan, Em toth.
[2020-05-30] MEDS: sertraline 50 mg Tablet PO (20:19)
[2020-05-31] VITALS (34 sets, daily range): BP systolic 112–176; BP diastolic 72–97; PULSE 57–92; RESP 18–30; TEMP 36.2–36.8; O2SAT 85–96
[2020-05-31] MEDS: enoxaparin 100 mg/mL Syringe 80 MG SUBCUT (02:40)
[2020-05-31 06:38] LABS: Basophils % 0.1 %; Hematocrit 37.3 % (37.0-47.0); Hemoglobin 11.5 g/dL (11.5-15.3); Lymphocytes # 1.7 10^3/uL (0.8-4.8); Lymphocytes % 18.6 %; Mean Corpuscular HGB Conc 30.8 g/dL (30.0-36.0); Mean Corpuscular Volume 90.8 fL (81-99); Mean Platelet Volume 11.7 fL (7.4-10.4); Monocytes # 0.5 10^3/uL (0.2-0.9); Neutrophils # 7.07 10^3/uL (1.8-7.7); Neutrophils % 75.6 %; Nucleated Red Blood Cells % 0 %; Platelet Count 232 10^3/cmm (130-400); Red Blood Count 4.11 10^6/uL (4.1-5.3); Red Cell Distribution Width 14.4 % (12.1-15.1); White Blood Count 9.4 10^3/uL (4.0-10.0)
[2020-05-31 06:44] LABS: Fibrinogen 429 mg/dL (174-498)
[2020-05-31 06:54] LABS: D Dimer 7.43 ug/mIFEU (0-0.59)
[2020-05-31 07:46] LABS: Alanine Aminotransferase 18 U/L (0-33); Albumin Level 3.3 g/dL (3.5-5.2); Alkaline Phosphatase 63 IU/L (35-105); Anion Gap 12.5 (5-19); Aspartate Amino Transferase 29 U/L (0-32); Blood Urea Nitrogen 14 mg/dL (8-23); C Reactive Protein 27.4 mg/L (0.0-4.9); Calcium 8.6 mg/dL (8.5-10.5); Carbon Dioxide 24 mmol/L (22-29); Chloride 108 mmol/L (98-107); Creatinine Clr Calc Pharmacy 62.0498; Ferritin 178 ng/mL (15-150); Globulin 3.2 g/dL (1.3-4.6); Glucose 102 mg/dL (65-115); Lactate Dehydrogenase 264 U/L (135-214); NT Pro B Type Natriuretic Pept 1107 pg/mL (0-125); Osmolality Calculated 293 mOsm/kg (285-295); Potassium 3.5 mmol/L (3.5-5.1); Sodium 141 mmol/L (136-145); Total Bilirubin 0.2 mg/dL (0.15-1.2); Total Protein 6.5 g/dL (6.6-8.7)
--- NOTE | 2020-05-31 07:56 | PM.PN ---
Subjective Subjective: Interval history: Now requiring supplemental oxygen support, on 2 L NC overnight, improving inflammatory markers, had 1050 mL urine output overnight. On day 2 of remdesevir. Ambulating in the hallway with nursing staff assistance, on room air currently. Reports feeling better today. Noted acute right lower extremity DVT on venous duplex. Medications: Reviewed: Yes Medication Review Details: Active Medications Generic Name Dose Route Start Last Admin Trade Name Freq PRN Reason Stop Dose Admin Acetaminophen 650 mg 05/29/20 17:46 Tylenol PO Q6H PRN MILD PAIN OR INCR EASE TEMP Albuterol Sulfate 2 puff 05/29/20 17:41 Ventolin INHALATION Q4H.RESPIRATORY P RN SHORTNESS OF AZUCENA TH Amlodipine Besylat e 5 mg 05/30/20 09:00 05/30/20 09:47 Norvasc PO 5 mg DAILY YUMIKO Administration Ascorbic Acid 500 mg 05/30/20 09:00 05/30/20 09:47 Vitamin C PO 500 mg DAILY YUMIKO Administration Azithromycin 500 mg 05/30/20 09:00 05/30/20 09:47 Zithromax PO 500 mg DAILY YUMIKO Administration Protocol Benzonatate 100 mg 05/29/20 17:53 05/30/20 04:48 Tessalon Pearls PO 100 mg TID PRN Administration COUGH Dexamethasone 6 mg 05/30/20 11:00 05/30/20 11:41 Decadron IVP 6 mg Q24H YUMIKO Administration Enoxaparin Sodium 80 mg 05/30/20 14:45 05/31/20 02:40 Lovenox SUBCUT 80 mg Q12H YUMIKO Administration Famotidine 20 mg 05/29/20 18:00 05/30/20 17:43 Pepcid Tab PO 20 mg BID YUMIKO Administration remdesivir (EUA) 1 00 mg/ 100 mls @ 100 mls /hr 05/31/20 17:00 Sodium Chloride IV 06/03/20 17:59 Q24H YUMIKO Ondansetron HCl 4 mg 05/29/20 17:44 Zofran IVP Q6H PRN NAUSEA AND VOMITI NG Sertraline HCl 50 mg 05/29/20 21:00 05/30/20 20:19 Zoloft PO 50 mg BEDTIME YUMIKO Administration Zinc Gluconate 50 mg 05/30/20 09:00 05/30/20 09:46 Zinc Gluconate PO 50 mg DAILY YUMIKO Administration acetaminophen [From Percocet] Allergy (Verified 05/29/20 14:10) Unknown codeine Allergy (Verified 05/29/20 14:10) Unknown oxycodone Allergy (Verified 05/29/20 14:10) Unknown topiramate [From Topamax] Allergy (Verified 05/29/20 14:10) Unknown Vitals/I&O/Wt Last Vital Signs Temp 98.2 F 05/31/20 04:00 Pulse 57 L 05/31/20 06:00 Resp 20 H 05/31/20 06:00 BP 162/89 05/31/20 06:00 Pulse Ox 96 05/31/20 06:00 05/30/20 05/31/20 05/31/20 22:59 06:59 14:59 Intake Total 365 / 1507.5 100 / 1607.5 Output Total 250 / 850 900 / 1750 Balance 115 / 657.5 -800 / -142.5 Weight last 48 hrs Weight 78.471 kg Weight 72.575 kg Physical Exam Const: COMMON NORMALS: no acute distress, patient oriented x3 and alert GENERAL APPEARANCE: cooperative and comfortable ORIENTATION/CONSCIOUSNESS: Yes awake OTHER: -Resting comfortably in bed HENMT: COMMON NORMALS: normocephalic, atraumatic, hearing grossly normal bilaterally and moist oral mucous membranes HEAD & SCALP: normocephalic and atraumatic Eye: COMMON NORMALS: Equal, round and reactive pupils present, EOMs intact bilaterally and conjunctivae normal CONJUNCTIVA: Yes conjunctivae normal PUPIL: Yes Equal, round and reactive pupils present Neck/C-Spine: COMMON NORMALS: full ROM GENERAL: Yes normal visual inspection and Yes trachea midline Resp: COMMON NORMALS: normal respiratory effort, No retractions and No use of accessory muscles EFFORT & INSPECTION: Yes able to speak in complete sentences, Yes symmetric chest movement and Yes tachypneic OTHER: -diminished breath sounds bilaterally, air entry improving -on RA Cardio: COMMON NORMALS: regular rate, regular rhythm, S1 normal heart sound present, S2 normal heart sound present and No murmurs present (Cardio) RATE: regular rate RHYTHM: regular rhythm HEART SOUNDS: S1 normal heart sound present and S2 normal heart sound present GI: COMMON NORMALS: Normal to inspection, nondistended, normoactive bowel sounds present, Soft to palpation and non-tender PALPATION: Yes Soft to palpation Extremity: COMMON NORMALS: normal to inspection, full ROM and no clubbing, cyanosis or edema; negative for no pedal edema Neuro: COMMON NORMALS: patient oriented x3, moves all extremities, no focal motor deficits, no sensory deficits noted and gait normal SENSORIUM/ORIENTATION: Yes alert Psych: COMMON NORMALS: mental status grossly normal, Normal thought process present, cooperative, normal affect and speech normal SPEECH: Yes normal speech THOUGHT PROCESS: Normal thought process present Skin: COMMON NORMALS: no rashes or lesions noted, no jaundice, no petechiae and no mottling GENERAL SKIN EXAM: no rashes or lesions noted Data : 05/31/20 03:45 05/31/20 07:05 Micro: Microbiology 05/29/20 20:20 Blood Culture - Preliminary Blood NEGATIVE TO DATE 05/29/20 20:34 Blood Culture - Preliminary Blood Gram positive cocci 05/29/20 18:23 MRSA Culture - Final Nose A&P Assessment and plan (1) Pneumonia due to 2019-nCoV: -initially tested for COVID-19 on 05/19; workplace exposure -not oxygen dependent at baseline; now requiring supplemental oxygen, wean as tolerated -continue dexamethasone -ABG with noted hypoxia -telemetry monitoring -continue to monitor vital signs; stable currently -continue to monitor respiratory status -supplemental oxygen as needed; supportive care including zinc, vitamin C, breathing treatments as needed, antitussives, incentive spirometry, pulmonary toilet -negative influenza screen, bacterial antigens, Legionella -blood cx: 08/07 bottles positive for GPC in clusters, order repeat set -continue to trend inflammatory markers -noted evidence of bilateral pneumonia on CXR; noted to have moderate to severe bilateral groundglass opacities so started on remdesivir (day 2) -continue empiric antibiotic coverage as unable to exclude bacterial superinfection -due to significant D-dimer elevation (>20), need to r/o DVT, PE; escalated anticoagulation. CTA negative for PE; venous duplex with noted acute RLE DVT (peroneal vein); will switch to Eliquis. As this is not her first episode she would likely require lifelong anticoagulation Status: Acute (2) HTN (hypertension): -continue to monitor vital signs -continue antihypertensives Status: Chronic Qualifiers: Hypertension type: essential hypertension Qualified Code(s): I10 - Essential (primary) hypertension (3) GERD (gastroesophageal reflux disease): -continue pepcid -large hiatal hernia noted on CXR Status: Chronic Qualifiers: Esophagitis presence: esophagitis presence not specified Qualified Code(s): K21.9 - Gastro-esophageal reflux disease without esophagitis Additional A&P Information -hx of OA; pain control as needed -viral diarrhea; likely secondary to COVID-19 infection; off IVF, encourage oral hydration -prior hx of PE, RLE DVT; treated with course of Eliquis -low salt diet as tolerated -GI ppx with famotidine -DVT ppx with Lovenox -Dispo: home -Code status: FULL code Attestations Medical Necessity Statement*: Patient requires hospitalization for continued treatment of COVID-19 pneumonia, on antibiotic and antiviral treatment and continued anticoagulation. Time Spent in Patient Care: 16 - 35 minutes (>than 50% of time spent in counselling and/or direct pt care on unit). Coding Level of Care Code Acute [employer] for [facility] Fwd Exam Comprehensive Diagnoses Pneumonia due to 2019-nCoV U07.1; J12.89 HTN (hypertension) I10 Hypertension type: essential hypertension GERD (gastroesophageal reflux disease) K21.9 Esophagitis presence: esophagitis presence not specified
[2020-05-31] MEDS: famotidine 20 mg Tablet PO ×2 (09:56→17:01)
[2020-05-31] MEDS: azithromycin 250 mg Tablet 500 MG PO (09:56)
[2020-05-31] MEDS: zinc gluconate 50 mg Tablet PO (09:56)
[2020-05-31] MEDS: amlodipine 5 mg Tablet PO (09:56)
[2020-05-31] MEDS: ascorbic acid 500 mg Tablet PO (09:56)
[2020-05-31] MEDS: FUROsemide 10 mg/mL SDV 2mL 20 MG IVP (09:57)
[2020-05-31] MEDS: dexamethasone 4 mg/mL INJ 6 MG IVP (10:41)
[2020-05-31] MEDS: apixaban 5 mg Tablet 10 MG PO (14:18)
[2020-05-31] MEDS: sertraline 50 mg Tablet PO (20:25)
[2020-06-01] VITALS (19 sets, daily range): BP systolic 140–177; BP diastolic 69–104; PULSE 51–83; RESP 16–27; TEMP 36.6–36.7; O2SAT 84–96
[2020-06-01] MEDS: apixaban 5 mg Tablet 10 MG PO ×2 (01:40→13:53)
[2020-06-01 05:46] LABS: C Reactive Protein 19.1 mg/L (0.0-4.9)
[2020-06-01 05:58] LABS: Ferritin 196 ng/mL (15-150); NT Pro B Type Natriuretic Pept 619 pg/mL (0-125)
[2020-06-01 06:03] LABS: Lactate Dehydrogenase 319 U/L (135-214)
[2020-06-01 06:47] LABS: D Dimer 5.97 ug/mIFEU (0-0.59)
[2020-06-01] MEDS: amlodipine 5 mg Tablet PO (08:33)
[2020-06-01] MEDS: zinc gluconate 50 mg Tablet PO (08:33)
[2020-06-01] MEDS: azithromycin 250 mg Tablet 500 MG PO (08:33)
[2020-06-01] MEDS: ascorbic acid 500 mg Tablet PO (08:33)
[2020-06-01] MEDS: famotidine 20 mg Tablet PO (08:33)
--- NOTE | 2020-06-01 09:00 | PC.SOCIAL ---
IMM Page 2 of IMM explained to patient by phone. She verbalizes understanding. Initialed, dated, and timed and will be sent to medical records upon d/c.
[2020-06-01] MEDS: dexamethasone 4 mg/mL INJ 6 MG IVP (10:52)
--- NOTE | 2020-06-01 12:15 | PM.DCS ---
Discharge Providers Date of Admission: 05/29/20 14:29 Date of Discharge: June 01, 2020 Attending Provider at Admission: Adriana Grover MD Attending Provider at Discharge: Adriana Grover MD Consults: None Primary Care Provider: Dr. Fitzpatrick Diagnoses at Discharge Discharge Diagnosis (1) Pneumonia due to 2019-nCoV: Status: Acute Permanent problem details: -initially tested for COVID-19 on 05/19; workplace exposure -not oxygen dependent at baseline; now requiring supplemental oxygen, wean as tolerated. Home oxygen evaluation prior to discharge, qualifies for 3 L NC with exertion -continue dexamethasone -ABG with noted hypoxia -telemetry monitoring -continue to monitor vital signs; stable currently -continue to monitor respiratory status -supplemental oxygen as needed; supportive care including zinc, vitamin C, breathing treatments as needed, antitussives, incentive spirometry, pulmonary toilet -negative influenza screen, bacterial antigens, Legionella -blood cx: 08/07 bottles positive for GPC in clusters, repeat set pending -continue to trend inflammatory markers -noted evidence of bilateral pneumonia on CXR; noted to have moderate to severe bilateral groundglass opacities so started on remdesivir (day 3) -continue empiric antibiotic coverage as unable to exclude bacterial superinfection -due to significant D-dimer elevation (>20), need to r/o DVT, PE; escalated anticoagulation. CTA negative for PE; venous duplex with noted acute RLE DVT (peroneal vein); switched to Eliquis. As this is not her first episode she would likely require lifelong anticoagulation (2) HTN (hypertension): Status: Chronic Permanent problem details: -continue to monitor vital signs -continue antihypertensives Qualifiers: Hypertension type: essential hypertension Qualified Code(s): I10 - Essential (primary) hypertension (3) GERD (gastroesophageal reflux disease): Status: Chronic Permanent problem details: -continue pepcid -large hiatal hernia noted on CXR Qualifiers: Esophagitis presence: esophagitis presence not specified Qualified Code(s): K21.9 - Gastro-esophageal reflux disease without esophagitis (4) Right leg DVT: Status: Acute Permanent problem details: -due to significant D-dimer elevation (>20), need to r/o DVT, PE; escalated anticoagulation. CTA negative for PE; venous duplex with noted acute RLE DVT (peroneal vein); switched to Eliquis. As this is not her first episode she would likely require lifelong anticoagulation Qualifiers: Affected thrombotic vein of extremity: peroneal Chronicity: acute Qualified Code(s): I82.451 - Acute embolism and thrombosis of right peroneal vein Other Information Additional DC diagnoses/information: -hx of OA; pain control as needed -viral diarrhea; likely secondary to COVID-19 infection; off IVF, encourage oral hydration -prior hx of PE, RLE DVT; treated with course of Eliquis Reason for Visit Reason for Visit: COVID SYMPTOMS Hospital Course Hospital Course: Patient was admitted to the viral ICU secondary to having been found positive for COVID-19 infection. Due to concern for possible decompensation given degree of dyspnea on presentation she was admitted to the hospital for further care. Inflammatory markers were found to be elevated and there was evidence of pneumonia on her chest x-ray. She was started on remdesivir, IV steroids and empiric antibiotic therapy. Interestingly her D-dimer was quite elevated and as it is unlikely that infection would explain the degree of elevation she was screened for possible PE and DVT, and found to have an acute right lower extremity DVT. She had been covered empirically with therapeutic Lovenox which was then switched to therapeutic Eliquis. 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 She has previously been treated with Eliquis with good response hence the choice of therapy. She has done well particularly over the past 24-36 hours and would like to go home today. She will be discharged with a short course of steroids and antibiotics. While at rest she is able to maintain her saturations in the low 90s while on room air but with exertion does require some supplemental oxygen support. She is not oxygen dependent at baseline so home oxygen evaluation was done prior to discharge and she qualifies for 3 L nasal cannula which has been arranged. She has been cautioned to continue to monitor her symptoms at home as well as her temperature and oxygen levels. She is advised to seek medical attention immediately should she have worsening symptoms, persistently low oxygen levels, fever. She will need to follow-up with her primary care provider and is to recuperate at home until cleared for return to work by her primary care provider. Discharge Summary: -Patient to follow up with primary care provider within 1 week Physical Exam Const: COMMON NORMALS: no acute distress, patient oriented x3 and alert GENERAL APPEARANCE: cooperative and comfortable ORIENTATION/CONSCIOUSNESS: Yes awake OTHER: -Resting comfortably in bed HENMT: COMMON NORMALS: normocephalic, atraumatic, hearing grossly normal bilaterally and moist oral mucous membranes HEAD & SCALP: normocephalic and atraumatic Eye: COMMON NORMALS: Equal, round and reactive pupils present, EOMs intact bilaterally and conjunctivae normal CONJUNCTIVA: Yes conjunctivae normal PUPIL: Yes Equal, round and reactive pupils present Neck/C-Spine: COMMON NORMALS: full ROM GENERAL: Yes normal visual inspection and Yes trachea midline Resp: COMMON NORMALS: normal respiratory effort, No retractions and No use of accessory muscles EFFORT & INSPECTION: Yes able to speak in complete sentences, Yes symmetric chest movement and Yes tachypneic OTHER: -diminished breath sounds bilaterally, air entry improving -on RA Cardio: COMMON NORMALS: regular rate, regular rhythm, S1 normal heart sound present, S2 normal heart sound present and No murmurs present (Cardio) RATE: regular rate RHYTHM: regular rhythm HEART SOUNDS: S1 normal heart sound present and S2 normal heart sound present GI: COMMON NORMALS: Normal to inspection, nondistended, normoactive bowel sounds present, Soft to palpation and non-tender PALPATION: Yes Soft to palpation Extremity: COMMON NORMALS: normal to inspection, full ROM and no clubbing, cyanosis or edema; negative for no pedal edema Neuro: COMMON NORMALS: patient oriented x3, moves all extremities, no focal motor deficits, no sensory deficits noted and gait normal SENSORIUM/ORIENTATION: Yes alert Psych: COMMON NORMALS: mental status grossly normal, Normal thought process present, cooperative, normal affect and speech normal SPEECH: Yes normal speech THOUGHT PROCESS: Normal thought process present Skin: COMMON NORMALS: no rashes or lesions noted, no jaundice, no petechiae and no mottling GENERAL SKIN EXAM: no rashes or lesions noted Discharge Data Data Completed and Pending: Completed Studies During Hospitalization Category Date Time Status CT angio chest PE protcl [id number] Rout ine Cat Scan 05/30/20 14:39 Completed XR chest 1V aziza ble [id number] Stat Exams 05/29/20 11:28 [place] [id number] Routin e Ultrasound 05/30/20 14:39 Completed Pending at discharge Category Date Time Status Blood Culture Sta t Lab 05/29/20 20:20 Results Blood Culture Sta t Lab 05/31/20 12:30 Results Sputum Culture an d Gram Stain Routi ne Lab 05/30/20 08:32 Ordered Labs from last 24 hours 06/01/20 06/01/20 06/01/20 03:50 03:50 03:50 D-Dimer 5.97 H Ferritin 196 H Lactate Dehydrogen ase 319 H C-Reactive Protein 19.1 H NT-Pro-B Natriuret Pep 619 H Vitals: Last Vital Signs Temp 97.9 F 06/01/20 11:18 Pulse 65 06/01/20 08:00 Resp 27 H 06/01/20 08:00 BP 149/98 06/01/20 09:00 Pulse Ox 90 06/01/20 08:00 Discharge Plan Discharge Patient Disposition: Home Condition: Stable Prescriptions: New John DVT-PE Treat 30D Start 5 mg (74 tabs) tablets,dose pack See Rx Instructions .ROUTE .COMPLEX Qty: 74 RF: 0 prednisone 20 mg tablet See Rx Instructions .ROUTE .COMPLEX 5 Days Qty: 10 RF: 0 azithromycin 250 mg Tablet 500 mg PO DAILY 5 Days Qty: 10 RF: 0 Vitamin C 500 mg Tablet 500 mg PO DAILY Qty: 30 RF: 0 Ventolin HFA 90 mcg/actuation Hfa Aerosol Inhaler 2 puff inhalation Q4H.RESPIRATORY PRN (Reason: Shortness Of Breath) Qty: 18 RF: 0 zinc gluconate 50 mg Tablet 50 mg PO DAILY Qty: 30 RF: 0 Continued sumatriptan succinate 50 mg tablet 50 mg PO PRN RF: 0 amlodipine 5 mg tablet 5 mg PO DAILY RF: 0 tramadol 50 mg tablet 25 - 50 mg PO Q4H PRN (Reason: Pain) RF: 0 Tylenol Extra Strength 500 mg Tablet 500 - 1,000 mg PO PRN RF: 0 famotidine 20 mg tablet 20 mg PO BEDTIME RF: 0 Aleve 220 mg Tablet 440 mg PO PRN RF: 0 sertraline 50 mg tablet 50 mg PO BEDTIME RF: 0 Adult Multivitamin Gummies 200 mcg Tablet,Chewable 400 mcg PO DAILY RF: 0 Discontinued omeprazole 40 mg capsule,delayed release(DR/EC) 40 mg PO DAILY RF: 0 Discharge Orders: Discharge Order (Routine); Ordered 06/01/20 Ordered By: Adriana Grover Other Ambulatory Orders: DME: Oxygen (Order) Location: None Selected Ordered By: Adriana Grover Referrals: Ricky Fitzpatrick DO [Physician] - 4-7 days (Post hospital discharge follow up) Discharge Diet: Low Salt Discharge Activity: Increase activity as tolerated and Oxygen as instructed Activity Restrictions/Additional Instructions: -Please continue to monitor your symptoms at home particularly with respect to your oxygen levels, temperature, breathing. Please seek medical attention immediately should you notice persistently low oxygen levels, worsening symptoms, persistent fever -Please continue to maintain proper and frequent hand hygiene, mask wearing and social distancing particularly when out in the community. Would strongly recommend continued self-isolation -Please note that you will now require supplemental oxygen particularly with exertion. Discharge Attestations Time Spent in Discharge Care*: greater than 30 min Specific Discharge Activities: Specific discharge activities: educating patient, educating and/or supporting family/caregiver, discussing with adult protective caseworker/social workers/dc planners, documenting/other paperwork and evaluating patient/reviewing data Status at Discharge: Cognitive status at discharge: cognitively intact, Behavioral status at discharge: cooperative and independent in ADL's, Functional status at discharge: independent ambulation Overall status at discharge: patient is progressing back to baseline Quality Metrics Clinical Quality Measures During this hospital stay, did patient experience: None Coding Level of Care Code Acute Chief Radiation Therapist for g Fwd Diagnoses Pneumonia due to 2019-nCoV U07.1; J12.89 HTN (hypertension) I10 Hypertension type: essential hypertension GERD (gastroesophageal reflux disease) K21.9 Esophagitis presence: esophagitis presence not specified Right leg DVT I82.451 Affected thrombotic vein of extremity: peroneal Chronicity: acute
--- NOTE | 2020-06-01 15:04 | PC.NURSE ---
Patient discharged with all belongings, preferred to use own pharmacy, medications sent there.
--- NOTE | 2020-06-02 14:03 | PC.SOCIAL ---
Called the patient at home [phone]. She state that she has an appointment to see her PCP Dr. Fitzpatrick on 06/05/2020. She is currently on oxygen and is using it at home. She stated that she is doing well. We spoke about signs and symptoms to watch for such as; blue lips or face, fever of- 104 or higher, trouble breathing or catching breath, chest pain lasting longer than 5 minute, confusion or trouble waking up. We also spoke about ways to improve the immune system, these included; eating and drinking well, eating fruits and vegetables, lean meat, low fat dairy products, keeping up with immunizations such as flu/pneumonia/shingles shots, going to all appointments and follow ups, lessening and stress. We also spoke about ways to stop or prevent the spread of the COVID 19. These included; social distancing at all times, washing hands longer than 20 seconds with a good lather, sanitizing surfaces in home and in vehicle, masking up when possible and washing any cloth masks after use and allow them to dry completely before next use, sneezing or coughing into arm, restricting company or going out in public. We spoke a little about the benefits of plasma donation. Patient was mailed information. We went over all her discharge paperwork, she stated that she understood it well, that the nurses went over everything thoroughly.
== END 2020-06-01 14:45 | disposition home or self-care (01) | DRG 177 ==
LOC: ER 14:30 → ICU 14:56
PROVIDERS: Emergency Medicine; Admitting Provider Family Medicine; Visit Provider Family Medicine
DX: U07.1 COVID-19 (principal); J12.89 Other viral pneumonia; A08.39 Other viral enteritis; I82.451 Acute embolism and thrombosis of right peroneal vein; R09.02 Hypoxemia; Z85.41 Personal history of malignant neoplasm of cervix uteri; Z96.653 Presence of artificial knee joint, bilateral; I10 Essential (primary) hypertension; K21.9 Gastro-esophageal reflux disease without esophagitis; K44.9 Diaphragmatic hernia without obstruction or gangrene; M19.90 Unspecified osteoarthritis, unspecified site
CPT/HCPCS: 12345; 36415; 36600; 71045; 71275; 80053; 82550; 82728; 82803; 83605; 83615; 83880; 84145; 85025; 85378; 85384; 86140; 86403; 87040; 87070; 87205; 87449; 87641; 87804; 93970; 94760; 96372; 96375; 99283; J1100; J1650; J1940; J7030; Q0144; Q9967

== ENCOUNTER 2020-07-25 12:41 | Outpatient (CLI) | payer MEDICARE, SELFPAY ==
--- NOTE | 2020-07-25 12:57 | MM_ITS ---
WS: [id number] BILATERAL SCREENING DIGITAL MAMMOGRAM WITH CAD HISTORY: SCREEN COMPARISON: 11/16/2018 and 08/01/2017 Bilateral CC and MLO views submitted. Computer aided detection analyzed. Breast composition: The breasts are heterogeneously dense, which may obscure small masses. No suspici ous masses, microcalcifications or architectural distortion. Benign calcification 9:00 RIGHT breast. MM/[place] [id number] IMPRESSION: BI-RADS: 2-Benign FOLLOW UP: 1 Year Follow-up
== END 2020-07-25 12:42 | disposition home or self-care (01) ==
LOC: RADSHAW 12:47
PROVIDERS: PCP Internal Medicine; Visit Provider Nurse Practitioner Family
DX: Z12.31 Encounter for screening mammogram for malignant neoplasm of breast (principal)
CPT/HCPCS: 77067

== ENCOUNTER 2021-04-12 14:27 | Outpatient (CLI) | payer MEDICARE, SELFPAY ==
--- NOTE | 2021-04-12 14:32 | XR_ITS ---
WS: [id number] DEXA (DUAL ENERGY X-RAY ABSORPTIOMETRY) Bone mineral density was performed using a [employer] machine. HISTORY: POSTMENOPAUSAL COMPARISON: 12/16/2013 Lumbar spine BMD (L1-L4): 1.297 g/cm2 T score: 1.0 Z score: 2.0 Total hip BMD: Left: 0.945 g/cm2. T score: -0.5 Z score: 0.6 Right: 0.925 g/cm2. T score: -0.7 Z score: 0.5 10 year probability of a major osteoporotic fracture is 9%. Compared to the prior study from 12/16/2013. Lumbar spine bone mineral density has decreased by 4.4%. Bilateral hips bone mineral density has not changed. XR/XR DEXA axial skeleton* [id number] IMPRESSION: NORMAL BONE MINERAL DENSITY based upon the WHO classification for females. Sign ificant decrease in bone mineral density in the lumbar spine since the prior ex am.
== END 2021-04-12 14:28 | disposition home or self-care (01) ==
PROVIDERS: PCP Internal Medicine; Visit Provider Nurse Practitioner Family
DX: Z78.0 Asymptomatic menopausal state (principal)
CPT/HCPCS: 77080

== ENCOUNTER 2021-09-25 14:33 | Outpatient (CLI) | payer MEDICARE, SELFPAY ==
--- NOTE | 2021-09-25 14:42 | MM_ITS ---
WS: [id number] BILATERAL DIGITAL SCREENING MAMMOGRAPHY WITH CAD CLINICAL INFORMATION: SCREENING HISTORY: Screening mammogram. No current complaints. COMPARISON: July 25, 2020 TECHNIQUE: Bilateral CC and MLO views. FINDINGS: The breasts are composed of heterogeneous fibroglandular density tissue, which can limit the detectio n of small underlying mass lesions. A few incidental punctate and lucent centered calcifications. No suspicious mass, asymmetry, calcifications, or architectural distortion. No evidence of malignancy. MM/[place] [id number] IMPRESSION: BI-RADS: 2-Benign FOLLOW UP: 1 Year Follow-up Recommend return to annual screening mammography.
== END 2021-09-25 14:34 | disposition home or self-care (01) ==
PROVIDERS: PCP Internal Medicine; Visit Provider Internal Medicine
DX: Z12.31 Encounter for screening mammogram for malignant neoplasm of breast (principal)
CPT/HCPCS: 77067

== ENCOUNTER 2021-11-19 14:19 | Emergency (ER) | payer MEDICARE, SELFPAY ==
[2021-11-19] VITALS (14 sets, daily range): BP systolic 139–182; BP diastolic 70–103; PULSE 80–110; RESP 14–18; TEMP 36.7–37.6; O2SAT 92–97; BMI 34.0
--- NOTE | 2021-11-19 15:21 | ED_ITS ---
HPI - Recheck/Abnormal Lab/Rx General: Chief Complaint: Recheck/Abnormal Lab/Rx Stated Complaint: sent to ER per Dr. Fitzpatrick Time Seen by Provider: 11/19/21 14:45 PFSH ED PFSH: Medical History Cervical cancer GERD (gastroesophageal reflux disease) -continue pepcid -large hiatal hernia noted on CXR HTN (hypertension) -continue to monitor vital signs -continue antihypertensives Migraine headache Osteoarthritis Pulmonary embolism Surgical History History of hysterectomy for cancer History of knee replacement -bilateral S/P cholecystectomy Family History Grandmother Cancer -breast cancer Social History Smoking and tobacco status: never smoked Alcohol intake: never Household members: spouse Marital status: Current occupational status: employed Current occupation: cook at [employer] Vital Signs: Vital signs: Vital Signs Temperature 98.0 F 11/19/21 14:32 Pulse Rate 110 H 11/19/21 14:32 Respiratory Rate 18 11/19/21 14:32 Blood Pressure 141/70 11/19/21 14:32 Pulse Oximetry 97 11/19/21 14:32 Discharge Plan Discharge Condition: Stable Prescriptions: No Action Eliquis 5 mg tablet 5 mg PO BID Qty: 180 3RF sumatriptan succinate 50 mg tablet 50 mg PO PRN 0RF amlodipine 5 mg tablet 5 mg PO DAILY 0RF tramadol 50 mg tablet 25 - 50 mg PO Q4H PRN (Reason: Pain) 0RF Rx Instructions: pt states she doesnt take often Tylenol Extra Strength 500 mg Tablet 500 - 1,000 mg PO PRN 0RF famotidine 20 mg tablet 20 mg PO BEDTIME 0RF Aleve 220 mg Tablet 440 mg PO PRN 0RF sertraline 50 mg tablet 50 mg PO BEDTIME 0RF Adult Multivitamin Gummies 200 mcg Tablet,Chewable 400 mcg PO DAILY 0RF Vitamin C 500 mg Tablet 500 mg PO DAILY Qty: 30 0RF Ventolin HFA 90 mcg/actuation Hfa Aerosol Inhaler 2 puff inhalation Q4H.RESPIRATORY PRN (Reason: Shortness Of Breath) Qty: 18 0RF zinc gluconate 50 mg Tablet 50 mg PO DAILY Qty: 30 0RF Referrals: Ricky Fitzpatrick DO [Primary Care Provider] - Coding Level of Care Code ED Product Management Intern for Joelle Lopez
--- NOTE | 2021-11-19 15:22 | XR_ITS ---
WS: [id number] Exam: XR chest 2V* [id number] Date/Time of Exam: 11/19/2021 3:27 PM Reason For Exam: dyspnea Comparison 10/24/2021. The lungs are fully expanded. No infiltrates are seen. Very large hiatal hernia noted. Heart size is top limits normal. No pleural effusion. The mediastinum is not widened. Ectasia of the thoracic aorta . Regional bony elements are intact. XR/XR chest 2V* [id number] IMPRESSION: 1. Very large hiatal hernia unchanged in appearance. 2. The lungs are otherwise clear no acute infiltrates are noted.
--- NOTE | 2021-11-19 15:22 | W.ED.GENADLT ---
HPI - General Adult General: Chief complaint: Recheck/Abnormal Lab/Rx Stated complaint: sent to ER per Dr. Fitzpatrick Time Seen by Provider: 11/19/21 14:45 History of Present Illness: Patient is a 71-year-old female with a history of cervical cancer, GERD, pulmonary embolism on Eliquis, hypertension who presents the emergency room for evaluation of low hemoglobin. Patient tells me that she is compliant with her Eliquis. Patient does not know why her hemoglobin is low. Today, patient had routine blood work which showed that her hemoglobin is less than 6. Patient was then told to come to the emergency room by Dr. Michael Matthews. Patient denies any melena/hematochezia, hematuria, vaginal bleeding, or other source of bleeding. Patient has no focals abdominal pain new chest pain or shortness of breath. Patient has chronic shortness of breath since her Covid symptoms 2 years ago. Patient reports cough for which she was placed on prednisone and doxycycline last week. Patient completed her course today. Patient denies any fever/chill, sore throat, or nasal congestion. Onset: unknown Duration:ongoing Location:home Severity:moderate Associated symptoms: Reports dyspnea (+chronic dyspnea); Deny chest pain, nausea, rash, palpitations or vomiting Review of Systems Const: Denies: fever(s) or chills Eyes: Denies: change in vision ENMT: Denies: mouth pain Card: Denies: chest pain or palpitations Resp: Reports: dyspnea (+chronic dyspnea) and non-productive cough (+chronic cough) GI: Denies: abdominal pain, nausea, vomiting or diarrhea : Denies: dysuria Musc: Denies: extremity pain Skin/Breast: Denies: rash or new lesions Neuro: Denies: weakness in extremities Psych: Reports: other (Normal mood) Miguel/Lymph: Denies: easy bruising PFSH ED PFSH: Medical History Cervical cancer GERD (gastroesophageal reflux disease) -continue pepcid -large hiatal hernia noted on CXR HTN (hypertension) -continue to monitor vital signs -continue antihypertensives Migraine headache Osteoarthritis Pulmonary embolism Surgical History History of hysterectomy for cancer History of knee replacement -bilateral S/P cholecystectomy Family History Grandmother Cancer -breast cancer Social History Smoking and tobacco status: never smoked Alcohol intake: never Household members: spouse Marital status: Current occupational status: employed Current occupation: cook at [employer] Physical Exam Const: COMMON NORMALS: alert HENMT: COMMON NORMALS: atraumatic HEAD & SCALP: atraumatic MOUTH: moist mucous membranes not abnormal Eye: COMMON NORMALS: EOMs intact bilaterally and conjunctivae normal CONJUNCTIVA: Yes conjunctivae normal Neck/C-Spine: COMMON NORMALS: full ROM and supple Resp: COMMON NORMALS: normal respiratory effort and clear to auscultation bilaterally AUSCULTATION: clear to auscultation bilaterally Cardio: RATE: tachycardic GI: COMMON NORMALS: Soft to palpation and non-tender PALPATION: Yes Soft to palpation OTHER: No focal TTP. NO guarding rebound, guarding, rigidity. No CVA tenderness to percussion. Neg De Souza/Neg McBurney's point tenderness, no suprabupic tenderness to palpation. Back/Pelvis: OTHER: Rectal exam supervised by [employer] tech: Without evidence of hemorrhoids, fissures. No prostatic enlargment, no tenderness of prostate. Stool guiac negative. Extremity: COMMON NORMALS: full ROM Neuro: SENSORIUM/ORIENTATION: Yes alert MOTOR EXAM: No Abnormal motor strength present and Other motor observations present (no focal motor deficits) Psych: COMMON NORMALS: speech normal SPEECH: Yes normal speech MOOD & AFFECT: Yes euthymic mood Course Vital Signs: Vital signs: Vital Signs Temperature 98.9 F 11/19/21 22:21 Pulse Rate 90 11/19/21 22:21 Respiratory Rate 16 11/19/21 22:21 Blood Pressure 179/103 11/19/21 22:21 Pulse Oximetry 93 11/19/21 22:21 [facility] - General Adult Medical Decision Making 71-year-old female with history of multiple pulmonary embolism on Eliquis requiring 3 L oxygen at baseline presenting to the emergency room for evaluation of low hemoglobin. Patient is found to have a hemoglobin 6.3 today. Patient will receive 2 unit transfusion. Potassium of 3.1, patient received 80 mEq of p.o. potassium. Do not suspect acute GI bleeding given negative stool exam, hemodynamically stable, no melena/hematochezia/or abd pain. I have given patient follow up with our case packer and sealer to be seen by our outpatient GI for possible EGD. Patient aware of a call from our case packer and sealer to schedule for appointment(s) and verbalizes understanding of the importance of following up. I have given patient follow up with our case packer and sealer to be seen by our outpatient coal cutting machine operator for evaluation of anemia. Patient aware of a call from our case packer and sealer to schedule for appointment(s) and verbalizes understanding of the importance of following up. Patient reassures me that she will have repeat blood work in 3 to [address] Fitzpatrick to ensure that her hemoglobin is improving. Rx iron sulfate for anemia Disposition: Discharge. Patient counseled regarding diagnostic impression, treatment plan. Patient given ED strict return precautions to return for continuation, worsening, or development of new symptoms. Instructed to f/u w/ PCP regarding symptoms today. Patient verbalized understanding. Lab Data : 11/19/21 15:35 11/19/21 15:35 Radiology Impressions Chest X-Ray 11/19/21 15:22 IMPRESSION: 1. Very large hiatal hernia unchanged in appearance. 2. The lungs are otherwise clear no acute infiltrates are noted. Laboratory Results WBC 7.0 10^3/uL (4.0-10.0) 11/19/21 15:35 RBC 3.10 10^6/uL (4.1-5.3) L 11/19/21 15:35 Hgb 6.3 g/dL (11.5-15.3) L* 11/19/21 15:35 Hct 23.0 % (37.0-47.0) L 11/19/21 15:35 MCV 74.2 fl (81-99) L 11/19/21 15:35 MCH 20.3 pg (28.0-34.0) L 11/19/21 15:35 MCHC 27.4 g/dL (30.0-36.0) L 11/19/21 15:35 RDW 17.8 % (12.1-15.1) H 11/19/21 15:35 Plt Count 314 10^3/cmm (130-400) 11/19/21 15:35 MPV 10.5 fL (7.4-10.4) H 11/19/21 15:35 Neut % (Auto) 56.4 % 11/19/21 15:35 Lymph % (Auto) 28.2 % 11/19/21 15:35 [place] % (Auto) 11.0 % 11/19/21 15:35 Eos % (Auto) 3.3 % 11/19/21 15:35 Baso % (Auto) 0.7 % 11/19/21 15:35 Neut # (Auto) 3.97 10^3/uL (1.8-7.7) 11/19/21 15:35 Lymph # (Auto) 2.0 10^3/uL (0.8-4.8) 11/19/21 15:35 [place] # (Auto) 0.8 10^3/uL (0.2-0.9) 11/19/21 15:35 Eos # (Auto) 0.2 10^3/uL (0.0-0.8) 11/19/21 15:35 Baso # (Auto) 0.1 10^3/uL (0.0-0.1) 11/19/21 15:35 Nucleated RBC % (auto) 0.3 % 11/19/21 15:35 Nucleated RBCs # 0.0 /100WBC 11/19/21 15:35 PT 15.50 SECONDS (12.1-14.9) H 11/19/21 15:35 INR 1.19 (0.8-1.2) 11/19/21 15:35 APTT 26.2 SECONDS (23.9-36.7) 11/19/21 15:35 Sodium 142 mmol/L (136-145) 11/19/21 15:35 Potassium 3.1 mmol/L (3.5-5.1) L 11/19/21 15:35 Chloride 105 mmol/L (98-107) 11/19/21 15:35 Carbon Dioxide 25 mmol/L (22-29) 11/19/21 15:35 Anion Gap 15.1 (5-19) 11/19/21 15:35 BUN 17 mg/dL (8-23) 11/19/21 15:35 Creatinine 1.0 mg/dL (0.5-0.9) H 11/19/21 15:35 GFR Calculation Not Reportable 11/19/21 15:35 Glucose 104 mg/dL (65-115) 11/19/21 15:35 Calculated Osmolality 296 mOsm/kg (285-295) H 11/19/21 15:35 Calcium 8.3 mg/dL (8.5-10.5) L 11/19/21 15:35 NT-Pro-B Natriuret Pep 387 pg/mL (0-125) H 11/19/21 15:35 Blood Type B Negative 11/19/21 15:35 Rho(D) Type Negative 11/19/21 15:35 Antibody Screen Negative 11/19/21 15:35 Crossmatch See Detail 11/19/21 15:35 Discharge Plan Discharge Patient Disposition: Home Clinical Impression: Anemia, Hypokalemia Condition: Stable Prescriptions: New ferrous sulfate 325 mg (65 mg iron) tablet 325 mg PO DAILY 30 Days Qty: 30 0RF potassium chloride 10 mEq capsule, extended release 10 meq PO DAILY 7 Days Qty: 7 0RF No Action Eliquis 5 mg tablet 5 mg PO BID Qty: 180 3RF amlodipine 5 mg tablet 5 mg PO QAM 0RF tramadol 50 mg tablet 25 - 50 mg PO Q4H PRN (Reason: Pain) 0RF Rx Instructions: pt states she doesnt take often acetaminophen [Tylenol Extra Strength] 500 mg Tablet 1,000 mg PO Q6H PRN (Reason: Pain) 0RF famotidine 20 mg tablet 20 mg PO BEDTIME PRN (Reason: Heartburn) 0RF Adult Multivitamin Gummies 200 mcg Tablet,Chewable 400 mcg PO QAM 0RF doxycycline hyclate 100 mg capsule 100 mg PO BID 0RF citalopram 10 mg tablet 10 mg PO BEDTIME 0RF meloxicam 15 mg tablet 15 mg PO DAILY 0RF prednisone 20 mg tablet 20 mg PO DAILY 0RF sumatriptan succinate 50 mg Tablet 50 mg PO Q2H PRN (Reason: Migraine Headache) 0RF Rx Instructions: do not exceed 4 doses per 24 hrs omeprazole 40 mg capsule,delayed release(DR/EC) 40 mg PO QAM 0RF hydrocortisone 2.5 % cream with perineal applicator See Rx Instructions .ROUTE .COMPLEX 0RF Rx Instructions: apply to affected area bid prn montelukast 10 mg tablet 10 mg PO DAILY PRN (Reason: Allergy Symptoms) 0RF Spiriva with HandiHaler 18 mcg capsule, w/inhalation device 1 cap INHALATION DAILY 0RF Vitamin D Gummies 1 tab PO QAM 0RF zinc gluconate 50 mg tablet 50 mg PO QAM 0RF Ventolin HFA 90 mcg/actuation HFA aerosol inhaler 2 puff inhalation QID PRN (Reason: Shortness Of Breath) 0RF Discharge Orders: Discharge ED (Routine); Ordered 11/19/21 Ordered By: Danial Luevano Referrals: Ricky Fitzpatrick, [Primary Care Provider] - Discharge Diet: Advance as tolerated Discharge Activity: Increase activity as tolerated Patient Instructions: Hypokalemia (ED), Anemia (ED) Activity Restrictions/Additional Instructions: Our case packer and sealer will have you follow-up with a coal cutting machine operator and GI doctor in the next few days. You would be expected to have a phone call with our case packer and sealer who will put you on the schedule. You can expect a call from us in the next 2-3 days. If you don't hear from us, call us back in the emergency room at [phone]. Please follow-up with Dr. Fitzpatrick for repeat blood work in 3 to 4 days. Please take your iron tablets as instructed. Coding Level of Care Code ED Benefits Consulting Analyst for [facility] Fwd Exam Comprehensive
--- NOTE | 2021-11-19 15:23 | ECG_ITS ---
[facility] Test Date: 2021-11-19 Pat Name: Shanna Chinchilla Department: Room: Gender: Female Priest: : 1950 Requested By: Danial Luevano Order Number: [id number] Reading MD: Sunitha Morel M.D. Measurements Intervals [place] Rate: 84 P: 59 LA: 165 QRS: 37 QRSD: 85 T: 47 QT: 360 QTc: 427 Interpretive Statements SINUS RHYTHM Compared to ECG 02/18/2019 22:54:43 No significant changes Electronically Signed On 11-20-2021 7:26:41 CDT by Sunitha Morel M.D. [id number]
[2021-11-19 15:45] LABS: Basophils # 0.1 10^3/uL (0.0-0.1); Basophils % 0.7 %; Eosinophils # 0.2 10^3/uL (0.0-0.8); Eosinophils % 3.3 %; Lymphocytes % 28.2 %; Mean Corpuscular HGB Conc 27.4 g/dL (30.0-36.0); Mean Corpuscular Hemoglobin 20.3 pg (28.0-34.0); Mean Corpuscular Volume 74.2 fl (81-99); Mean Platelet Volume 10.5 fL (7.4-10.4); Monocytes # 0.8 10^3/uL (0.2-0.9); Neutrophils # 3.97 10^3/uL (1.8-7.7); Neutrophils % 56.4 %; Nucleated Red Blood Cells % 0.3 %; Platelet Count 314 10^3/cmm (130-400); Red Cell Distribution Width 17.8 % (12.1-15.1)
[2021-11-19 15:48] LABS: Hemoglobin 6.3 g/dL (11.5-15.3)
[2021-11-19 16:10] LABS: INR 1.19 (0.8-1.2); Partial Thromboplastin Time 26.2 SECONDS (23.9-36.7)
[2021-11-19 16:23] LABS: Anion Gap 15.1 (5-19); Blood Urea Nitrogen 17 mg/dL (8-23); Calcium 8.3 mg/dL (8.5-10.5); Carbon Dioxide 25 mmol/L (22-29); Chloride 105 mmol/L (98-107); Glucose 104 mg/dL (65-115); NT Pro B Type Natriuretic Pept 387 pg/mL (0-125); Osmolality Calculated 296 mOsm/kg (285-295); Potassium 3.1 mmol/L (3.5-5.1); Sodium 142 mmol/L (136-145)
[2021-11-19] MEDS: potassium chloride ER 20 mEq Tablet 40 MEQ PO (17:41)
[2021-11-19] MEDS: sodium chloride 0.9% 100 mL Bag 50 ML IV (19:07)
--- NOTE | 2021-11-20 13:11 | DCPLANNER ---
Addendum entered by Мария Penny 11/27/21 07:53: Patient had a follow up appointment scheduled for 11.27.19 with general surgery - patient did attend. Patient had a follow up appointment scheduled for 11.22.21 with oncology - patient did attend. Original Note: manager environmental affairs had message to refer patient to hematology for anemia. manager environmental affairs called [facility], gave her patients information. manager environmental affairs was told that patients information will be printed and reviewed. Clinic will call patient with appointment information. manager environmental affairs also had message to schedule a follow up appointment for patient with general surgery. manager environmental affairs sent patients information to the front office staff at general surgery. Patients information will be printed and reviewed. Clinic will call patient with appointment information.
== END 2021-11-19 22:17 | disposition home or self-care (01) ==
PROVIDERS: Emergency Provider Emergency Medicine; PCP Internal Medicine
DX: D64.9 Anemia, unspecified (principal); E87.6 Hypokalemia; I10 Essential (primary) hypertension; R06.02 Shortness of breath; Z86.711 Personal history of pulmonary embolism; Z79.01 Long term (current) use of anticoagulants; Z85.41 Personal history of malignant neoplasm of cervix uteri; Z86.16 Personal history of COVID-19
CPT/HCPCS: 36430; 71046; 80048; 83880; 85025; 85610; 85730; 86850; 86900; 86920; 93005; 99284; P9016

== ENCOUNTER 2021-11-22 08:35 | Outpatient (CLI) | payer MEDICARE, SELFPAY ==
[2021-11-22 09:29] LABS: Basophils % 0.8 %; Eosinophils # 0.3 10^3/uL (0.0-0.8); Eosinophils % 5.6 %; Hematocrit 31.8 % (37.0-47.0); Hemoglobin 9.1 g/dL (11.5-15.3); Lymphocytes # 1.3 10^3/uL (0.8-4.8); Mean Corpuscular HGB Conc 28.6 g/dL (30.0-36.0); Mean Corpuscular Hemoglobin 22.2 pg (28.0-34.0); Mean Corpuscular Volume 77.8 fl (81-99); Mean Platelet Volume 10.8 fL (7.4-10.4); Monocytes # 0.6 10^3/uL (0.2-0.9); Monocytes % 11.7 %; Neutrophils # 2.75 10^3/uL (1.8-7.7); Neutrophils % 55.5 %; Nucleated Red Blood Cells % 0 %; Platelet Count 305 10^3/cmm (130-400); Red Blood Count 4.09 10^6/uL (4.1-5.3); Red Cell Distribution Width 18.6 % (12.1-15.1)
--- NOTE | 2021-11-22 11:03 | ONC CON_ITS ---
Dr. Cantu New Patient Note Patient: Shanna Chinchilla Unit #: [id number]: 1950 Dicatated By: Kim Cantu M.D.Date of Visit: Nov 22, 2021 Onc MED New Patient/Consult Referring Physician: CARMINA SANCHEZ History of Present Illness: Ms. Shanna Chinchilla, is a 71-year-old woman with history of iron deficiency anemia during teenage due to heavy menstrual periods, as per patient ,she used to take heavy dose of hormone to control her periods And oral iron supplements , until age 24 or 25, she was diagnosed with early stage cervical carcinoma for which she underwent hysterectomy,And no radiation or chemotherapy was offered, and since then there was no issues regarding anemia until on November 19, 2021 when she was sent to ER by PMD because of Routine lab work-up showed hemoglobin around 6 g. She was given 2 units of packed RBC and started on oral iron and also given potassium supplement for potassium 3.1 on November 19, 2021 as labs done in ER showed white blood count 7 hemoglobin 6.3 hematocrit 23 platelets 314,000 MCV 74.2, creatinine was 1, potassium was 3.1. Patient said she has history of chronic shortness of breath since she was diagnosed with COVID about 2 years ago, at that time, she developed pulmonary embolism second time, prior to that about 3 years ago when she underwent bilateral knee replacement, she was diagnosed with pulmonary embolism too. Patient has history of left leg DVT which was diagnosed 5 to 6 years ago. As per patient because of recurrent pulmonary embolism she was advised to stay on Eliquis for rest of her life. As per patient she underwent colonoscopy about [address] Sahu, but she developed perforation and was managed by Dr. Rios. She never had EGD done. No history of blood transfusion in the past till November 20, 2019. Patient denies any night sweats denies any weight loss denies any peripheral lymphadenopathy, denies any jaundice, denies any fresh blood per rectum but off and on dark stools, no hematuria or vaginal bleeding, no hemoptysis or hematemesis. Now feeling more energetic since received 2 units of packed RBC but complaining of mild nausea and not sure whether it is due to potassium supplement or oral iron supplements. No chest pain, no palpitation. Past Medical History: Ms. Chinchilla's medical history consists of gastroesophageal reflux disease, history of cervical cancer, history of pulmonary embolism, hypertension, migraine headaches, and osteoarthritis. Past Surgical History: Ms. Chinchilla's surgical/procedural history consists of bilateral knee replacement, cholecystectomy, hysterectomy, Covid vaccine #2 - Pfizer in 2020, and Covid vaccine #1 - Pfizer in 2020. Medications: amLODIPine Besylate 1 Tablet (of 10 mg) Oral daily, Eliquis 1 Tablet (of 5 mg) Oral b.i.d., Meloxicam 1 Tablet (of 15 mg) Oral daily, Omeprazole 1 Capsule (of 40 mg) Capsule Delayed Release Oral daily, Sertraline HCl 1 Tablet (of 50 mg) Oral daily, SUMAtriptan Succinate 1 Tablet (of 50 mg) Oral PRN, traMADol HCl 1 Tablet (of 50 mg) Oral PRN Allergies: Codeine Sulfate, oxyCODONE HCl, Percocet, Topiramate, and traMADol HCl. Social History: Ms. Chinchilla is . Ms. Chinchilla has never smoked. She has no history of drinking. Family History: There is no documented family history. Review Of Symptoms: Review of Systems is not available for this patient. Vital Signs: Performed on Nov 22, 2021 09:59: 4, 0, 34.28 (HIGH), 1.81 sq.m, 61 in, 96 %, 94 /min, 18 /min, 157/83 mm(hg) (HIGH), 97.2 F (LOW), and 181.4 lbs (HIGH). Performance Status: 0 - Fully active, able to carry on all predisease activities without restrictions. (ECOG) Physical Examination: ENMT - No mouth sores, no thrush, no jaundice, No cervical lymphadenopathy, Respiratory - Lungs are clear to auscultation, Cardiovascular - Regular rate and rhythm of heart, Abdomen - Soft, bowel sounds present, Extremities - No visible edema. Lab/Imaging: Most recent lab results are not available for this patient. Impression: Microcytic/hypochromic anemia due to iron deficiency due to either chronic GI blood loss, as patient mentioned history of dark-colored stools, she is on Eliquis for life due to recurrent pulmonary embolism. Other possibility could be iron malabsorption. Considering her age underlying myelodysplasia cannot be ruled out Status post 2 units of packed RBC on November 19, 2021 for hemoglobin 6.3 g, hematocrit 23, MCV 74.2 with a normal white blood count and platelet count, started on oral iron on November 19, 2021 History of pulmonary embolism x2 once after bilateral knee replacement about 3 years ago and second time during COVID infection about 2 years ago and patient also history of left leg DVT which was about 5 to 6 years ago. GERD/hiatal hernia Hypertension Osteoarthritis Plan: Discussed with patient regarding her labs white blood count 5 hemoglobin 9.1 g compared to 6.3 g prior to 2 units of packed RBC and oral iron supplement, hematocrit 31.8 platelets 305,000 MCV 77.8 Clinically, patient is doing well, somewhat more energetic since blood transfusion, on oral iron but having mild nausea which could be due to oral iron due to GI Intolerance or potassium supplement, will check her potassium level today and if her potassium level is normal, then will discontinue potassium supplements and if her mild nausea resolves, then will continue with oral iron and she will return to clinic in 1 month with CBC and iron studies As patient had colonoscopy done 3 years ago, as per patient, postprocedure complication with perforation, which was managed by Dr. Rios, as per patient she was told by Dr. Rios never to have colonoscopy, we will refer her to Dr. Rios for evaluation and consider EGD and leave colonoscopy up to his discretion. If above-mentioned procedure shows no evidence of gross bleeding and her iron deficiency anemia persist, then will consider capsule endoscopy to rule out small bowel AVMs which can cause chronic GI blood loss especially when when she is on chronic anticoagulation. Return to clinic in 1 month with CBC iron studies. Signed By: Kim Cantu M.D. <<Signature on File>>
[2021-11-22 11:16] LABS: Alanine Aminotransferase 11 U/L (0-33); Albumin Level 3.7 g/dL (3.5-5.2); Alkaline Phosphatase 64 IU/L (35-105); Anion Gap 14.2 (5-19); Aspartate Amino Transferase 15 U/L (0-32); Blood Urea Nitrogen 14 mg/dL (8-23); Calcium 8.4 mg/dL (8.5-10.5); Carbon Dioxide 24 mmol/L (22-29); Chloride 106 mmol/L (98-107); Globulin 2.7 g/dL (1.3-4.6); Glucose 85 mg/dL (65-115); Osmolality Calculated 290 mOsm/kg (285-295); Potassium 4.2 mmol/L (3.5-5.1); Sodium 140 mmol/L (136-145); Total Bilirubin 0.2 mg/dL (0.15-1.2); Total Protein 6.4 g/dL (6.6-8.7)
== END 2021-11-22 08:36 | disposition home or self-care (01) ==
PROVIDERS: PCP Internal Medicine; Visit Provider Internal Medicine Hematology & Oncology
DX: D50.9 Iron deficiency anemia, unspecified (principal); Z86.711 Personal history of pulmonary embolism; Z86.718 Personal history of other venous thrombosis and embolism; Z79.01 Long term (current) use of anticoagulants; Z86.16 Personal history of COVID-19; K21.9 Gastro-esophageal reflux disease without esophagitis; K44.9 Diaphragmatic hernia without obstruction or gangrene; I10 Essential (primary) hypertension; M19.90 Unspecified osteoarthritis, unspecified site
CPT/HCPCS: 36415; 80053; 85025; 99204

== ENCOUNTER → 2021-11-26 09:48 | Outpatient (BNVA) | payer MEDICARE, SELFPAY | PROVIDERS: PCP Internal Medicine; Visit Provider Surgery | DX: D50.9 Iron deficiency anemia, unspecified (principal) | CPT/HCPCS: 99213 ==

== ENCOUNTER 2022-01-14 08:24 | Oncology outpatient (recurring) (ONCR) | payer MEDICARE, SELFPAY | END 2022-01-31 23:59 | disposition home or self-care (01) | PROVIDERS: PCP Internal Medicine; Visit Provider Internal Medicine Hematology & Oncology | DX: D50.9 Iron deficiency anemia, unspecified (principal); N92.0 Excessive and frequent menstruation with regular cycle; I26.99 Other pulmonary embolism without acute cor pulmonale; Z79.01 Long term (current) use of anticoagulants; I82.451 Acute embolism and thrombosis of right peroneal vein; Z79.899 Other long term (current) drug therapy | CPT/HCPCS: 82607; 82728; 83540; 83550; 85025; 86850; 86900; 99214 ==

== ENCOUNTER 2022-01-17 06:29 | Day surgery (SDC) | payer MEDICARE, SELFPAY ==
[2022-01-15 14:23] VITALS: BMI 34.0
--- NOTE | 2022-01-17 06:36 | W.PM.OPSFHP ---
Same Day Surgery H&P Indication for Procedure/HPI DATE OF PROCEDURE: January 17, 2022 CHIEF COMPLAINT/INDICATIONFOR SURGICAL PROCEDURE: Iron deficiency anemia PREOP DIAGNOSIS: Iron deficiency anemia PLANNED PROCEDURE: Operation Date: 01/17/22 08:00 Proposed Procedures p EGD 18228/col 45.78/D50.9 iron deficiency anemia(Not Applicable) - Pawan Rios MD s Colonoscopy 47907(Not Applicable) - Pawan Rios MD 11/26/2021 This is a pleasant 72 years old female patient presents to my practice with history of iron deficiency anemia.? Has been on Eliquis.? And patient is referred to me for potential EGD and colonoscopy to rule out GI disorder.? Patient is well-known to me from previous clinical encounter as back in 2019 she did undergo a screening colonoscopy at an outside facility and a polyp was removed at that time and following that a complication did take place where she did have worsening abdominal pain and ended up getting a CT scan of the abdomen pelvis that did show: 1. Extensive retroperitoneal air which is worrisome for perforated viscus. 2. Possible diverticulitis of the distal sigmoid colon 3. Indeterminate liver lesions, further evaluation suggested 4. Possible cholelithiasis. That time patient was admitted on my service for parenteral antimicrobial therapy and repeated physical exam, she did respond to conservative measures and today she comes for discussion for further work-up for her iron deficiency anemia.? She denies any bleeding per orifices 01/17/2022 Patient comes today for diagnostic EGD and colonoscopy Medications/Allergies* Home Medications Medication Instructions Recorded Confirmed Type acetaminophen 500 mg tablet 1,000 mg PO Q6H PRN 05/29/20 01/17/22 History (Tylenol Extra Strength) amlodipine 5 mg tablet 5 mg PO QAM 05/29/20 01/17/22 History famotidine 20 mg tablet 20 mg PO BEDTIME PRN 05/29/20 01/17/22 History multivitamin with minerals-folic 400 mcg PO QAM 05/29/20 01/17/22 History acid 200 mcg chewable tablet (Adult Multivitamin Gummies) tramadol 50 mg tablet 25 - 50 mg PO Q4H PRN 05/29/20 01/17/22 History Vitamin D Gummies 1 tab PO QAM 11/19/21 01/17/22 History albuterol sulfate 90 mcg/actuation 2 puff INHALATION QID PRN 11/19/21 01/17/22 History aerosol inhaler (Ventolin HFA) citalopram 10 mg tablet 10 mg PO BEDTIME 11/19/21 01/17/22 History hydrocortisone 2.5 % topical cream See Rx Instructions .ROUTE .COMPLEX 11/19/21 01/17/22 History with perineal applicator meloxicam 15 mg tablet 15 mg PO DAILY 11/19/21 01/17/22 History montelukast 10 mg tablet 10 mg PO DAILY PRN 11/19/21 01/17/22 History omeprazole 40 mg capsule,delayed 40 mg PO QAM 11/19/21 01/17/22 History release sumatriptan succinate 50 mg tablet 50 mg PO Q2H PRN 11/19/21 01/17/22 History tiotropium bromide 18 mcg capsule 1 cap INHALATION DAILY 11/19/21 01/17/22 History with inhalation device (Spiriva with HandiHaler) zinc gluconate 50 mg tablet 50 mg PO QAM 11/19/21 01/17/22 History Allergies/Adverse Reactions Allergy/AdvReac Type Severity Reaction Status Date / Time acetaminophen [From Percocet] Allergy Unknown Verified 01/17/22 06:42 codeine Allergy Unknown Verified 01/17/22 06:42 oxycodone Allergy Unknown Verified 01/17/22 06:42 topiramate [From Topamax] Allergy Unknown Verified 01/17/22 06:42 Pertinent History/Comorbid Conditions* Medical History (Updated 11/27/21 @ 00:01 by ) Cervical cancer GERD (gastroesophageal reflux disease) -continue pepcid -large hiatal hernia noted on CXR HTN (hypertension) -continue to monitor vital signs -continue antihypertensives Migraine headache Osteoarthritis Pulmonary embolism Surgical History (Updated 05/29/20 @ 17:40 by Adriana Grover MD) History of hysterectomy for cancer History of knee replacement -bilateral S/P cholecystectomy Family History (Updated 05/29/20 @ 17:40 by Adriana Grover MD) Cancer Grandmother -breast cancer Social History Smoking and tobacco status: never smoked Alcohol intake: never Household members: spouse Marital status: Current occupational status: employed Current occupation: cook at [employer] Pertinent Exam Findings alert, oriented x 3, regular rate & rhythm and operative site marked (Abdominal examination nontender nondistended soft) Recommendations Surgery/Procedure today (Diagnostic EGD and colonoscopy) Coding Level of Care Code Acute Project Safety Manager for [facility] Jessica
[2022-01-17 06:47] VITALS: BP 137/93; PULSE 82; RESP 18; TEMP 36.4; O2SAT 94
[2022-01-17] MEDS: sodium chloride 0.9% 1,000 ML 30 ML IV (07:05)
--- NOTE | 2022-01-17 07:42 | ANES.PREANE2 ---
Pre-Anesthetic Assessment Height/Weight: Height 1.55 m Weight 81.647 kg Temp Pulse Resp BP Pulse Ox 97.5 F L 82 18 137/93 94 01/17/22 06:47 01/17/22 06:47 01/17/22 06:47 01/17/22 06:47 01/17/22 06:47 Preop Diagnosis: Iron deficiency anemia Operation Date: 01/17/22 08:00 Proposed Procedures p EGD 25647/col 45.78/D50.9 iron deficiency anemia(Not Applicable) - Pawan Rios MD s Colonoscopy 33503(Not Applicable) - Pawan Rios MD Familial anesthetic complications: PONV Was Beta Ella taken within 24 hours: N/A Was Clonidine taken within 24 hours: N/A Last intake: Intake Last Liquid Date 01/16/22 Last Liquid Time 20:00 Last Solid Date 01/15/22 Last Solid Time 20:00 Social No alcohol and No tobacco Exam alert, oriented x 3, clear to auscultation bilaterally and regular rate & rhythm Airway Mallampati: Class II Dentition: partials Pulmonary hx DVT w/ PE X 2 CV/HEM Deep Vein Thrombosis and Hypertension GI Gastroesophageal Reflux Disease Anesthetic Plan ASA status: 3 Anesthesia: MAC Risk of > 500 ml blood loss (7ml/kg in children): No Medications/Allergies Home Medications Medication Instructions Recorded Confirmed Last Taken Type acetaminophen 500 mg tablet 1,000 mg PO Q6H PRN 05/29/20 01/17/22 Unknown History (Tylenol Extra Strength) amlodipine 5 mg tablet 5 mg PO QAM 05/29/20 01/17/22 01/17/22 History famotidine 20 mg tablet 20 mg PO BEDTIME PRN 05/29/20 01/17/22 01/14/22 History multivitamin with minerals-folic 400 mcg PO QAM 05/29/20 01/17/22 01/14/22 History acid 200 mcg chewable tablet (Adult Multivitamin Gummies) tramadol 50 mg tablet 25 - 50 mg PO Q4H PRN 05/29/20 01/17/22 Unknown History apixaban 5 mg tablet (Eliquis) 5 mg PO BID #180 tab 07/09/21 01/17/22 01/14/22 Rx Vitamin D Gummies 1 tab PO QAM 11/19/21 01/17/22 01/14/22 History albuterol sulfate 90 mcg/actuation 2 puff INHALATION QID PRN 11/19/21 01/17/22 Unknown History aerosol inhaler (Ventolin HFA) citalopram 10 mg tablet 10 mg PO BEDTIME 11/19/21 01/17/22 01/14/22 History hydrocortisone 2.5 % topical cream See Rx Instructions .ROUTE .COMPLEX 11/19/21 01/17/22 01/16/22 History with perineal applicator meloxicam 15 mg tablet 15 mg PO DAILY 11/19/21 01/17/22 01/14/22 History montelukast 10 mg tablet 10 mg PO DAILY PRN 11/19/21 01/17/22 01/14/22 History omeprazole 40 mg capsule,delayed 40 mg PO QAM 11/19/21 01/17/22 01/14/22 History release sumatriptan succinate 50 mg tablet 50 mg PO Q2H PRN 11/19/21 01/17/22 01/14/22 History tiotropium bromide 18 mcg capsule 1 cap INHALATION DAILY 11/19/21 01/17/22 Unknown History with inhalation device (Spiriva with HandiHaler) zinc gluconate 50 mg tablet 50 mg PO QAM 11/19/21 01/17/22 01/14/22 History Allergies Allergy/AdvReac Type Severity Reaction Status Date / Time acetaminophen [From Percocet] Allergy Unknown Verified 01/17/22 06:42 codeine Allergy Unknown Verified 01/17/22 06:42 oxycodone Allergy Unknown Verified 01/17/22 06:42 topiramate [From Topamax] Allergy Unknown Verified 01/17/22 06:42 Current Medications Generic Name Dose Route Start Last Admin Trade Name Freq PRN Reason Stop Dose Admin Sodium Chloride 1,000 mls @ 30 mls/hr 01/17/22 06:45 01/17/22 07:05 Sodium Chloride 0.9% IV 01/18/22 06:44 30 mls/hr .Q24H YUMIKO Administration PFSH Anesthesia Medical History Cervical cancer GERD (gastroesophageal reflux disease) -continue pepcid -large hiatal hernia noted on CXR HTN (hypertension) -continue to monitor vital signs -continue antihypertensives Migraine headache Osteoarthritis Pulmonary embolism Surgical History History of hysterectomy for cancer History of knee replacement -bilateral S/P cholecystectomy Family History Grandmother Cancer -breast cancer Social History Smoking and tobacco status: never smoked Alcohol intake: never Household members: spouse Marital status: Current occupational status: employed Current occupation: cook at [employer] Anesthesia Cardiac Studies: No Data to Display
[2022-01-17 08:28] VITALS: BP 149/79; PULSE 88; RESP 16; TEMP 36.1; O2SAT 92
[2022-01-17 08:35] VITALS: BP 141/81; PULSE 76; RESP 18; O2SAT 94
[2022-01-17 08:45] VITALS: BP 140/72; PULSE 71; RESP 18; TEMP 36.3; O2SAT 92
--- NOTE | 2022-01-17 08:50 | FL_ITS ---
WS: [id number] Barium enema, 01/17/2022 Clinical Data: Sigmoid Colon Stricture Comparison: None. Fluoroscopy time: 2min [id number] # of spot films: 11 Findings: The preliminary film showed air throughout the colon because of the incomplete colonoscopy. There are clips in the right upper quadrant from a cholecystectomy. The barium was introduced in a retrograde fashion filling the entire colon. The haustral pattern was normal. No masses, polyps or obstruction w as seen. There was reflux into the terminal ileum. The ileocecal valve is unremarkable. The splenic f lexure was elevated through a foramen of [place] into the posterior left thorax. The post evacuatio n film was unremarkable. FL/FL barium enema [id number] Impression: 1. Normal barium enema. 2. Splenic flexure elevated into the left lower thorax via a foramen of [place] ek.
--- NOTE | 2022-01-17 09:09 | PC.NURSE ---
0845 Dr Rios' would like barium enema performed this morning if possible. Notified radiology and they are able to do procedure. 0908 patient to radiology via wheelchair. Adan took patient in radiology.
--- NOTE | 2022-01-17 16:29 | ANE.PACU2 ---
Inpatient post-anesthesia follow up: Airway intact: Yes Vital signs: Temperature 97.3 F Pulse Rate 71 Respiratory Rate 18 Blood Pressure 140/72 Pulse Oximetry 92 Oxygen Delivery Me thod Room Air Oxygen Flow Rate Fraction of Inspir ed Oxygen Hydration adequate: Yes Nausea and vomiting: No Pain level: 1 Mental status: Baseline
== END 2022-01-17 10:40 | disposition home or self-care (01) ==
PROVIDERS: PCP Internal Medicine; Visit Provider Surgery
PROC: 0DJ08ZZ Inspection of Upper Intestinal Tract, Via Natural or Artificial Opening Endoscopic (ICD-10-PCS; CPT 43235; principal; 2022-01-17 08:00)
PROC: 0DJD8ZZ Inspection of Lower Intestinal Tract, Via Natural or Artificial Opening Endoscopic (ICD-10-PCS; CPT 45330; 2022-01-17 08:00)
DX: D50.9 Iron deficiency anemia, unspecified (principal); Z79.01 Long term (current) use of anticoagulants; K44.9 Diaphragmatic hernia without obstruction or gangrene; Z85.41 Personal history of malignant neoplasm of cervix uteri; K21.9 Gastro-esophageal reflux disease without esophagitis; I10 Essential (primary) hypertension; M19.90 Unspecified osteoarthritis, unspecified site; Z86.711 Personal history of pulmonary embolism; Z53.9 Procedure and treatment not carried out, unspecified reason; K29.70 Gastritis, unspecified, without bleeding; Z86.718 Personal history of other venous thrombosis and embolism
CPT/HCPCS: 43239; 45331; 74270; 88305; 88342; J2704; J7030

== ENCOUNTER → 2022-02-06 11:24 | Outpatient (BNVA) | payer MEDICARE, SELFPAY | PROVIDERS: PCP Internal Medicine; Visit Provider Surgery | DX: Z09 Encounter for follow-up examination after completed treatment for conditions other than malignant neoplasm (principal); K44.9 Diaphragmatic hernia without obstruction or gangrene; K29.70 Gastritis, unspecified, without bleeding; K56.699 Other intestinal obstruction unspecified as to partial versus complete obstruction | CPT/HCPCS: 99213 ==

== ENCOUNTER 2022-02-26 09:55 | Oncology outpatient (recurring) (ONCR) | payer MEDICARE, SELFPAY ==
[2022-02-26 10:19] LABS: Basophils % 0.7 %; Eosinophils # 0.2 10^3/uL (0.0-0.8); Eosinophils % 4.1 %; Hematocrit 42.1 % (37.0-47.0); Hemoglobin 14.3 g/dL (11.5-15.3); Lymphocytes # 1.4 10^3/uL (0.8-4.8); Lymphocytes % 31.4 %; Mean Corpuscular Hemoglobin 29.8 pg (28.0-34.0); Mean Corpuscular Volume 87.7 fl (81-99); Mean Platelet Volume 9.5 fL (7.4-10.4); Monocytes # 0.5 10^3/uL (0.2-0.9); Neutrophils # 2.31 10^3/uL (1.8-7.7); Neutrophils % 52.8 %; Nucleated Red Blood Cells % 0 %; Platelet Count 180 10^3/cmm (130-400); Red Cell Distribution Width 14.7 % (12.1-15.1); White Blood Count 4.4 10^3/uL (4.0-10.0)
[2022-02-26 10:49] LABS: Ferritin 64 ng/mL (15-150); Iron 100 ug/dL (37-145); Percent Saturation 34.1 % (20-50); Total Iron Binding Capacity 293 mcg/dl; Unsaturated Iron Binding 193 ug/dL (112-347)
== END 2022-03-03 23:59 | disposition home or self-care (01) ==
PROVIDERS: PCP Internal Medicine; Visit Provider Internal Medicine Hematology & Oncology
DX: D50.9 Iron deficiency anemia, unspecified (principal); I26.99 Other pulmonary embolism without acute cor pulmonale; Z79.01 Long term (current) use of anticoagulants; I82.451 Acute embolism and thrombosis of right peroneal vein; Z86.16 Personal history of COVID-19; Z96.651 Presence of right artificial knee joint; Z96.652 Presence of left artificial knee joint; Z79.899 Other long term (current) drug therapy
CPT/HCPCS: 82728; 83540; 83550; 85025; 99214

== ENCOUNTER 2022-10-15 13:46 | Outpatient (CLI) | payer MEDICARE, SELFPAY ==
--- NOTE | 2022-10-15 14:03 | MM_ITS ---
WS: [id number] BILATERAL 3D TOMOSYNTHESIS DIGITAL SCREENING MAMMOGRAPHY WITH CAD CLINICAL INFORMATION: SCREENING HISTORY: Screening mammogram. No current complaints. COMPARISON: 2021 TECHNIQUE: Bilateral CC and MLO views. FINDINGS: Scattered fibroglandular densities bilaterally. No suspicious focal mass, asymmetry, calcifications, or architectural distortion. No evidence of malignancy. Punctate and lucent centered calcifications. MM/[place] [id number] IMPRESSION: BI-RADS: 2-Benign FOLLOW UP: 1 Year Follow-up Recommend return to annual screening mammography.
== END 2022-10-15 13:47 | disposition home or self-care (01) ==
LOC: RAD 13:52
PROVIDERS: PCP Internal Medicine; Visit Provider Internal Medicine
DX: Z12.31 Encounter for screening mammogram for malignant neoplasm of breast (principal)
CPT/HCPCS: 77063; 77067

== ENCOUNTER 2023-10-20 14:01 | Outpatient (CLI) | payer MEDICARE, SELFPAY ==
--- NOTE | 2023-10-20 14:29 | MM_ITS ---
WS: [id number] BILATERAL 3D TOMOSYNTHESIS DIGITAL SCREENING MAMMOGRAPHY WITH CAD CLINICAL INFORMATION: SCREENING HISTORY: Screening mammogram. No current complaints. COMPARISON: 2022 TECHNIQUE: Bilateral CC and MLO views. FINDINGS: The breasts are composed of heterogeneous fibroglandular density tissue, which can limit the detectio n of small underlying mass lesions. No suspicious mass, asymmetry, calcifications, or architectural d istortion. No evidence of malignancy. A few incidental benign calcifications. IMPRESSION: MM/[place] [id number] BI-RADS: 2-Benign FOLLOW UP: 1 Year Follow-up Recommend return to annual screening mammography.
== END 2023-10-20 14:02 | disposition home or self-care (01) ==
LOC: RAD 14:02
PROVIDERS: PCP Internal Medicine; Visit Provider Internal Medicine
DX: Z12.31 Encounter for screening mammogram for malignant neoplasm of breast (principal)
CPT/HCPCS: 77063; 77067

== ENCOUNTER 2024-10-27 10:51 | Outpatient (CLI) | payer MEDICARE, SELFPAY ==
--- NOTE | 2024-10-27 10:53 | MM_ITS ---
WS: [id number] SCREENING DIGITAL BREAST TOMOSYNTHESIS MAMMOGRAM WITH CAD HISTORY: SCREENING COMPARISON: 10/20/2023, 10/15/2022, 08/01/2017 Bilateral CC and MLO with tomosynthesis and synthetic mammography submitted. Computer aided detection analyzed. Breast composition: There are scattered areas of fibroglandular density. Focal asymmetry with very slight architectural distortion in the lateral LEFT breast seen only on the cc. Similar findings have been present on prior studies but it appears more pronounced on today's exam. Additional bilateral calcifications in the remaining breast parenchyma pattern is stable. MM/MM scr tomosynthesis [id number] IMPRESSION: BI-RADS: 0 - Incomplete: Need additional imaging evaluation. FOLLOW UP: Need Additional Imaging LEFT breast: Spot compression views (CC ). True ML. Ultrasound to follow if abn ormality persists.
== END 2024-10-27 10:52 | disposition home or self-care (01) ==
PROVIDERS: PCP Nurse Practitioner Family; Visit Provider Nurse Practitioner Family
DX: Z12.31 Encounter for screening mammogram for malignant neoplasm of breast (principal); R92.323 Mammographic fibroglandular density, bilateral breasts; N64.89 Other specified disorders of breast; R92.1 Mammographic calcification found on diagnostic imaging of breast
CPT/HCPCS: 77063; 77067

== ENCOUNTER 2024-11-16 09:53 | Outpatient (CLI) | payer MEDICARE, SELFPAY ==
--- NOTE | 2024-11-16 09:57 | MM_ITS ---
WS: [id number] ADDITIONAL VIEWS LEFT MAMMOGRAM WITH DIGITAL BREAST TOMOSYNTHESIS. LEFT breast ultrasound, limited HISTORY: ABNORMAL MAMMO COMPARISON: 10/27/2024, 10/20/2023, 09/25/2021 and 07/25/2020 Spot compression views LEFT breast in CC projection and true ML submitted with digital breast tomosynthesis and SM. Breast composition: There are scattered areas of fibroglandular density. Area of slight asymmetry and minimal distortion in the lateral LEFT breast nearly completely resolves with additional imaging. There is no area of abnormality on the ML projection. There are few benign calcifications. LEFT breast ultrasound: Ultrasound directed to the LEFT lateral breast. There is no abnormality in the lateral LEFT breast to correspond to the mammographic abnormality. Changes on the mammogram nearly completely resolved. MM/MM diag LT tomosynthesis [id number] IMPRESSION: BI-RADS: 2 - Benign. FOLLOW UP: 1 Year Follow-up Asymmetry in the lateral LEFT breast nearly completely resolved and becomes sim ilar to prior mammograms after additional imaging.
== END 2024-11-16 09:54 | disposition home or self-care (01) ==
PROVIDERS: Absent Provider Electrodiagnostic Medicine; PCP Nurse Practitioner Family; Visit Provider Nurse Practitioner Family
DX: R92.8 Other abnormal and inconclusive findings on diagnostic imaging of breast (principal); R92.323 Mammographic fibroglandular density, bilateral breasts; R92.1 Mammographic calcification found on diagnostic imaging of breast
CPT/HCPCS: 76642; 77061; G0279

== ENCOUNTER 2024-12-21 14:33 | Outpatient (RCR) | payer MEDICARE, SELFPAY | END 2025-01-01 23:59 | disposition home or self-care (01) | LOC: SPT 14:33 | PROVIDERS: Visit Provider Electrodiagnostic Medicine | DX: N32.81 Overactive bladder (principal) | CPT/HCPCS: 97161 ==

== ENCOUNTER 2025-01-02 05:00 | Outpatient (RCR) | payer MEDICARE, SELFPAY | END 2025-01-25 13:19 | disposition home or self-care (01) | LOC: SPT 05:00 | PROVIDERS: Visit Provider Electrodiagnostic Medicine | DX: N32.81 Overactive bladder (principal) | CPT/HCPCS: 97110; 97530 ==

== ENCOUNTER → 2025-06-02 14:23 | Outpatient (BNVA) | payer MEDICARE, SELFPAY | PROVIDERS: Visit Provider Nurse Practitioner Family | DX: L90.5 Scar conditions and fibrosis of skin (principal); L91.8 Other hypertrophic disorders of the skin; L82.1 Other seborrheic keratosis; D18.01 Hemangioma of skin and subcutaneous tissue; L81.4 Other melanin hyperpigmentation; L82.0 Inflamed seborrheic keratosis; R20.8 Other disturbances of skin sensation; L29.89 Other pruritus; D48.5 Neoplasm of uncertain behavior of skin | CPT/HCPCS: 11102; 17110; 99203 ==